=== PATIENT | male | born 1940 | race Caucasian/White ===

== ENCOUNTER 2017-05-29 15:47 | Emergency (ER) | payer MEDICARE, OTHER ==
[2017-05-29 17:25] LABS: Urine Blood TRACE (NEG); Urine Glucose NEGATIVE (NEG); Urine Protein TRACE (NEG); Urine Specific Gravity 1.025 (1.005-1.030); Urine pH 5.5 (5.0-7.0)
[2017-05-29 17:33] LABS: Bilirubin Direct 0.1 mg/dL (0-0.2); Bilirubin Total 0.7 mg/dL (0.3-1.2); Potassium 4.3 mEq/L (3.6-5.0); Protein, Total 7.4 g/dL (6.0-8.3)
[2017-05-29 17:34] LABS: CKMB Creatine Kinase MB 1.8 ng/ml (0.3-4.0); Magnesium 1.7 mg/dL (1.8-2.5)
[2017-05-29 17:35] LABS: Absolute Lymphocytes (CBC) 2.6 K/uL (0.7-4.9); Basophils % 1.4 % (0-1.3); Eosinophils % 1.2 % (0-4.4); Hematocrit 39.8 % (39.6-49.0); Lymphocytes % 18.6 % (15.3-44.8); MCH 36.4 pg (27.0-35.0); MCV 99.8 fL (80-100); MPV 8.7 fL (7.6-11.3); Monocytes % 7.1 % (3.3-12.3); RBC Red Blood Cell Count 3.99 M/uL (4.33-5.43)
--- NOTE | 2017-05-29 17:37 | RAD REPORT ---
EXAM DESCRIPTION: RAD - Chest Single View - 05/29/2017 5:11 pm CLINICAL HISTORY: Chest pain COMPARISON: None. TECHNIQUE: AP portable chest image was obtained 1638 hours . FINDINGS: No mass, consolidation or significant failure. Interstitial markings are diffusely promine nt. This is probably underlying fibrotic lung disease. As a baseline study, superimposed interstitial edema or infiltrate cannot be excluded. Trachea is midline. Heart and vasculature are normal. No veronica surable pleural effusion and no pneumothorax. No gross bony abnormality seen. No acute aortic finding s suspected. IMPRESSION: No mass, consolidation or failure. Prominent interstitial markings could indicate fibrosis, interstitial edema, interstitial infiltrate or a combination.
--- NOTE | 2017-05-29 18:41 | ER ---
Nurse's Notes [facility] Name: Pao Richards Age: 77 yrs Sex: Male : 1940 Arrival Date: 05/29/2017 Time: 15:54 Bed 13 Private MD: Diagnosis: Abnormal electrocardiogram [ECG] [EKG];Essential (primary) hypertension Presentation: 05/29 16:03 Presenting complaint: Patient states: "I was just seen by Dr. Govea at the [facility] and they aj1 told me that something was wrong with my EKG and to come to the ER right away. I've been having dizzy spells for the past few weeks" Patient denies CP, SOB, N/V, palpitations, syncope. Transition of care: patient was not received from another setting of care. Onset of symptoms was May 29, 2017. Care prior to arrival: None. 16:03 Method Of Arrival: Ambulatory aj1 16:03 Acuity: ALEXYS 3 aj1 Triage Assessment: 16:09 General: Appears in no apparent distress. comfortable, Behavior is calm, cooperative, aj1 appropriate for age. Pain: Denies pain. Historical: - Allergies: 16:09 No Known Allergies; aj1 - Home Meds: 16:09 "something for my cholesterol" [Active]; aj1 - PMHx: 16:09 "my good cholesterol is too low"; aj1 - PSHx: 16:09 None; aj1 - Immunization history:: Flu vaccine is up to date. - Social history:: Smoking status: Patient uses tobacco products, smokes one pack cigarettes per day. - Family history:: not pertinent. - Hospitalizations: : No recent hospitalization is reported. - History obtained from: EKG from [facility]. Screenin:10 Abuse screen: Denies threats or abuse. Denies injuries from another. Nutritional aj1 screening: No deficits noted. Tuberculosis screening: No symptoms or risk factors identified. 19:59 Fall Risk None identified. aj1 Assessment: 16:10 General: Appears in no apparent distress. comfortable, Behavior is calm, cooperative, aj1 appropriate for age. Pain: Denies pain. Neuro: Level of Consciousness is awake, alert, obeys commands, Oriented to person, place, time, situation, Social Sciences Chair are equal bilaterally Moves all extremities. Full function Gait is steady, Speech is normal, Facial symmetry appears normal, Reports dizziness. Cardiovascular: Denies nausea, palpitations, shortness of breath, syncope, vomiting, Heart tones S1 S2 present Patient's skin is warm and dry. Rhythm is regular Chest pain is denied. Respiratory: Airway is patent Respiratory effort is even, unlabored, Respiratory pattern is regular, symmetrical. GI: No signs and/or symptoms were reported involving the gastrointestinal system. : No signs and/or symptoms were reported regarding the genitourinary system. EENT: No signs and/or symptoms were reported regarding the EENT system. Derm: No signs and/or symptoms reported regarding the dermatologic system. Skin is pink, warm \\T\\ dry. normal. Musculoskeletal: No signs and/or symptoms reported regarding the musculoskeletal system. Circulation, motion, and sensation intact. 17:09 Reassessment: Patient appears in no apparent distress at this time. No changes from aj1 previously documented assessment. Patient and/or family updated on plan of care and expected duration. Pain level reassessed. Patient is alert, oriented x 3, equal unlabored respirations, skin warm/dry/pink. 18:10 Reassessment: Patient and/or family updated on plan of care and expected duration. Pain aj1 level reassessed. General: Appears in no apparent distress. comfortable, Behavior is calm, cooperative, appropriate for age. Pain: Denies pain. Neuro: Level of Consciousness is awake, alert, obeys commands, Oriented to person, place, time, situation, Speech is normal, Facial symmetry appears normal. Cardiovascular: Patient's skin is warm and dry. Rhythm is regular. Respiratory: Airway is patent Respiratory effort is even, unlabored, Respiratory pattern is regular, symmetrical. GI: No signs and/or symptoms were reported involving the gastrointestinal system. : No signs and/or symptoms were reported regarding the genitourinary system. EENT: No signs and/or symptoms were reported regarding the EENT system. Derm: No signs and/or symptoms reported regarding the dermatologic system. Skin is pink, warm \\T\\ dry. normal. Musculoskeletal: No signs and/or symptoms reported regarding the musculoskeletal system. Circulation, motion, and sensation intact. 18:45 Reassessment: Patient diet tray ordered by Ngoc Todd NP. Order received to not discharge aj1 patient until he has eaten. 19:10 Reassessment: Patient appears in no apparent distress at this time. No changes from aj1 previously documented assessment. Patient and/or family updated on plan of care and expected duration. Pain level reassessed. Patient is alert, oriented x 3, equal unlabored respirations, skin warm/dry/pink. 19:15 Reassessment: Patient given dietary tray. aj1 19:50 Reassessment: Patient states that he is ready for discharge. aj1 Vital Signs: 16:09 BP 136 / 78; Pulse 77; Resp 19; Pulse Ox 99% on R/A; Weight 97.98 kg; Height 5 ft. 9 aj1 in. (175.26 cm); Pain 0/10; 17:00 BP 132 / 70; Pulse 68; Resp 18; Pulse Ox 99% ; aj1 17:51 BP 147 / 75; Pulse 70; Resp 16; Pulse Ox 99% on R/A; mh5 18:50 BP 160 / 75; Pulse 60; Resp 18; Pulse Ox 99% ; aj1 19:57 BP 138 / 62; Pulse 72; Resp 18; Pulse Ox 99% ; aj1 16:09 Body Mass Index 31.90 (97.98 kg, 175.26 cm) aj1 ED Course: 15:54 Patient arrived in ED. mr 16:03 Ebonie Cotton, RN is Primary Nurse. aj1 16:05 Triage completed. aj1 16:09 Arm band placed on. aj1 16:10 Patient has correct armband on for positive identification. Bed in low position. Call aj1 light in reach. Side rails up X 1. 16:10 asw specialist on. Pulse ox on. NIBP on. aj1 16:10 No provider procedures requiring assistance completed. aj1 16:17 EKG done, by emissions testing and repair technician. reviewed by Felix Sunshine MD. tc 16:33 Elise Todd FNP is PHCP. kav 16:33 Felix Sunshine MD is Attending Physician. kav 16:38 Initial lab(s) drawn, by nj, sent to lab. Inserted saline lock: 22 gauge in right mh5 antecubital area, using aseptic technique. Blood collected. 16:39 Basic Metabolic Panel Sent. 5 16:39 BNP Sent. 5 16:39 CBC with Diff Sent. 5 16:39 Ckmb Sent. 5 16:39 CPK Sent. 5 16:39 LFT's Sent. [facility] 16:39 Magnesium Sent. [facility] 16:40 PT-INR Sent. [facility] 16:42 X-ray completed. Portable x-ray completed in exam room. Patient tolerated procedure kc2 well. 16:48 Ptt, Activated Sent. [facility] 16:48 Troponin (emerg Dept Use Only) Sent. [facility] 17:08 Urine Dipstick--Ancillary (enter results) Sent. [facility] 17:08 Urine collected: clean catch specimen, cloudy. [facility] 18:39 David Pandey MD is Referral Physician. [facility] 18:47 Placed in gown. Bed in low position. Call light in reach. Side rails up X 1. Diet: 5 Patient given snack. 19:58 IV discontinued, intact, bleeding controlled, No redness/swelling at site. Pressure aj1 dressing applied. Administered Medications: No medications were administered Outcome: 18:40 Discharge ordered by . [facility] 19:58 Discharged to home ambulatory. aj1 19:58 Condition: good 19:58 Discharge instructions given to patient, Instructed on discharge instructions, follow up and referral plans. medication usage, Demonstrated understanding of instructions, follow-up care, medications, Prescriptions given X 1. 19:59 Patient left the ED. aj1 Signatures: Ebonie Cotton, RN RN aj1 Elise Todd, AUDIOVISUAL LIBRARIAN AUDIOVISUAL LIBRARIAN Hamida Bernard Jas, Samra, relief driller EKG Kyra Adamson kc2 Hamida Rodriguez [facility]
--- NOTE | 2017-05-29 18:41 | EDPHYS ---
Physician Documentation [facility] Name: Pao Richards Age: 77 yrs Sex: Male : 1940 Arrival Date: 05/29/2017 Time: 15:54 Bed 13 Private MD: ED Physician Felix Sunshine HPI: 05/29 16:32 This 77 yrs old Male presents to ER via Ambulatory with complaints of kav Abnormal Lab Results. 18:21 Onset: The symptoms/episode began/occurred acutely, this morning. Associated signs and kav symptoms: Pertinent positives: The patient does not have any pertinent positive signs or symptoms associated with pediatric illness. Pertinent negatives:. Modifying factors: The patient symptoms are alleviated by nothing, the patient symptoms are aggravated by nothing. The patient has not experienced similar symptoms in the past. The patient has been recently seen by a physician: [facility]. patient reports that his [facility] physician sent him over to the ER for "...abnormal ekg". EKG sent from [facility] with NSR \\T\\ 70 bpm, left anterior fasicular block, LVH. Denies chest pain, sob, swelling, abdominal pain. 18:25 [facility] Severity of symptoms: At their worst the symptoms were very kav mild just prior to arrival. Historical: - Allergies: 16:09 No Known Allergies; aj1 - Home Meds: 16:09 "something for my cholesterol" [Active]; aj1 - PMHx: 16:09 "my good cholesterol is too low"; aj1 - PSHx: 16:09 None; aj1 - Immunization history:: Flu vaccine is up to date. - Social history:: Smoking status: Patient uses tobacco products, smokes one pack cigarettes per day. - Family history:: not pertinent. - Hospitalizations: : No recent hospitalization is reported. - History obtained from: EKG from [facility]. ROS: 18:26 Constitutional: Negative for fever, chills, and weight loss, Eyes: Negative for injury, kav pain, redness, and discharge, ENT: Negative for injury, pain, and discharge, Neck: Negative for injury, pain, and swelling, Cardiovascular: Negative for chest pain, palpitations, and edema, Respiratory: Negative for shortness of breath, cough, wheezing, and pleuritic chest pain, Abdomen/GI: Negative for abdominal pain, nausea, vomiting, diarrhea, and constipation, Back: Negative for injury and pain, : Negative for injury, bleeding, discharge, and swelling, MS/Extremity: Negative for injury and deformity, Skin: Negative for injury, rash, and discoloration, Neuro: Negative for headache, weakness, numbness, tingling, and seizure, Psych: Negative for depression, anxiety, suicide ideation, homicidal ideation, and hallucinations, Allergy/Immunology: Negative for hives, rash, and allergies, Endocrine: Negative for neck swelling, polydipsia, polyuria, polyphagia, and marked weight changes, Hematologic/Lymphatic: Negative for swollen nodes, abnormal bleeding, and unusual bruising. Exam: 18:26 Constitutional: This is a well developed, well nourished patient who is awake, alert, kav and in no acute distress. Head/Face: Normocephalic, atraumatic. Eyes: Pupils equal round and reactive to light, extra-ocular motions intact. Lids and lashes normal. Conjunctiva and sclera are non-icteric and not injected. Cornea within normal limits. Periorbital areas with no swelling, redness, or edema. ENT: Nares patent. No nasal discharge, no septal abnormalities noted. Tympanic membranes are normal and external auditory canals are clear. Oropharynx with no redness, swelling, or masses, exudates, or evidence of obstruction, uvula midline. Mucous membranes moist. Neck: Trachea midline, no thyromegaly or masses palpated, and no cervical lymphadenopathy. Supple, full range of motion without nuchal rigidity, or vertebral point tenderness. No Meningismus. Chest/axilla: Normal chest wall appearance and motion. Nontender with no deformity. No lesions are appreciated. Cardiovascular: Regular rate and rhythm with a normal S1 and S2. No gallops, murmurs, or rubs. Normal PMI, no JVD. No pulse deficits. Respiratory: Lungs have equal breath sounds bilaterally, clear to auscultation and percussion. No rales, rhonchi or wheezes noted. No increased work of breathing, no retractions or nasal flaring. Abdomen/GI: Soft, non-tender, with normal bowel sounds. No distension or tympany. No guarding or rebound. No evidence of tenderness throughout. Back: No spinal tenderness. No costovertebral tenderness. Full range of motion. Skin: Warm, dry with normal turgor. Normal color with no rashes, no lesions, and no evidence of cellulitis. MS/ Extremity: Pulses equal, no cyanosis. Neurovascular intact. Full, normal range of motion. Neuro: Awake and alert, GCS 15, oriented to person, place, time, and situation. Cranial nerves II-XII grossly intact. Motor strength 5/5 in all extremities. Sensory grossly intact. Cerebellar exam normal. Normal gait. Psych: Awake, alert, with orientation to person, place and time. Behavior, mood, and affect are within normal limits. Vital Signs: 16:09 BP 136 / 78; Pulse 77; Resp 19; Pulse Ox 99% on R/A; Weight 97.98 kg; Height 5 ft. 9 [facility]. (175.26 cm); Pain 0/10; 17:00 BP 132 / 70; Pulse 68; Resp 18; Pulse Ox 99% ; [facility] 17:51 BP 147 / 75; Pulse 70; Resp 16; Pulse Ox 99% on R/A; 5 18:50 BP 160 / 75; Pulse 60; Resp 18; Pulse Ox 99% ; aj1 19:57 BP 138 / 62; Pulse 72; Resp 18; Pulse Ox 99% ; [facility] 16:09 Body Mass Index 31.90 (97.98 kg, 175.26 cm) [facility] MDM: 16:33 Patient medically screened. [facility] 18:26 Data reviewed: vital signs, nurses notes, lab test result(s), EKG, radiologic studies. [facility] 05/29 16:15 Order name: Basic Metabolic Panel [facility] 05/29 16:15 Order name: BNP 05/29 16:15 Order name: CBC with Diff 05/29 16:15 Order name: Ckmb [facility] 05/29 16:15 Order name: CPK [facility] 05/29 16:15 Order name: LFT's [facility] 05/29 16:15 Order name: Magnesium [facility] 05/29 16:15 Order name: PT-INR [facility] 05/29 16:15 Order name: Ptt, Activated [facility] 05/29 16:15 Order name: Troponin (emerg Dept Use Only) [facility] 05/29 17:04 Order name: Urine Dipstick--Ancillary (enter results) [place] 05/29 17:04 Order name: Protime (+INR); Complete Time: 18:18 EDMS 05/29 17:04 Order name: PTT, Activated Partial Thromb; Complete Time: 18:18 EDMS 05/29 18:19 Interpretation: Within normal limits. [facility] 05/29 17:08 Order name: Troponin (Emerg Dept Use Only); Complete Time: 18:18 EDMS 05/29 18:19 Interpretation: Within normal limits: TROPED < 0.03. [facility] 05/29 16:15 Order name: XRAY Chest (1 view) 05/29 16:15 Order name: EKG; Complete Time: 16:16 05/29 16:15 Order name: Cardiac monitoring; Complete Time: 16:15 05/29 16:15 Order name: EKG - Nurse/Tech; Complete Time: 16:44 05/29 16:15 Order name: IV Saline Lock; Complete Time: 16:46 05/29 16:15 Order name: Labs collected and sent; Complete Time: 16:46 [facility] 05/29 17:12 Order name: BNP B-Type Natriuretic Peptide; Complete Time: 18:18 EDMS 05/29 18:20 Interpretation: Within normal limits. [facility] 05/29 17:26 Order name: Urine Dipstick-Ancillary; Complete Time: 18:17 EDMS 05/29 18:17 Interpretation: Normal except: UBLD TRACE; UESTR TRACE. [facility] 05/29 17:33 Order name: Basic Metabolic Panel; Complete Time: 18:17 EDMS 05/29 18:17 Interpretation: Normal except: GFR 68. [facility] 05/29 17:33 Order name: Liver (Hepatic) Function; Complete Time: 18:18 EDMS 05/29 18:20 Interpretation: Within normal limits. [facility] 05/29 17:35 Order name: Creatine Phosphokinase; Complete Time: 18:18 EDMS 05/29 18:20 Interpretation: Within normal limits. [facility] 05/29 17:35 Order name: CKMB Creatine Kinase MB; Complete Time: 18:18 EDMS 05/29 18:20 Interpretation: Within normal limits. [facility] 05/29 17:35 Order name: Magnesium; Complete Time: 18:17 EDMS 05/29 18:17 Interpretation: Normal except: MG 1.7. [facility] 05/29 17:37 Order name: RAD; Complete Time: 18:18 EDMS 05/29 18:19 Interpretation: Interstitial edema. kav 05/29 17:46 Order name: CBC with Automated Diff; Complete Time: 18:17 EDDE 05/29 18:17 Interpretation: Normal except: WBC 13.9; RBC 3.99; MCH 36.4; MCHC 36.4; BASO% 1.4; NEUT kav A 10.0. 05/29 18:18 Order name: Diet Regular; Complete Time: 18:19 ms 05/29 16:15 Order name: O2 Per Protocol; Complete Time: 16:15 [facility] 05/29 16:15 Order name: O2 Sat Monitoring; Complete Time: 16:15 aj 05/29 16:15 Order name: Urine Dipstick-Ancillary (obtain specimen); Complete Time: 17:26 aj Administered Medications: No medications were administered Disposition: 05/30 07:15 Co-signature as Attending Physician, Felix Sunshine MD I agree with the assessment and kdr plan of care. Disposition: 05/29/17 18:40 Discharged to Home. Impression: Abnormal electrocardiogram [ECG] [EKG], Essential (primary) hypertension. - Condition is Stable. - Discharge Instructions: Hypertension, [id number], How to Take Your Blood Pressure, [id number], DASH Eating Plan, Managing Your High Blood Pressure. - Prescriptions for Lisinopril 10 mg Oral Tablet - take 1 tablet by ORAL route once daily; 30 tablet. - Medication Reconciliation Form, Thank You Letter, Antibiotic Education, Prescription Opioid Use form. - Follow up: David Pandey MD; When: 1 week; Reason: Recheck today's complaints, Continuance of care, Re-evaluation by your physician. - Problem is new. - Symptoms have improved. Signatures: Dispatcher [employer] Ebonie Griffith RN RN aj1 Felix Sunshine MD MD kdr Vern, Katherine, MANAGER INFORMATION MANAGER INFORMATION kav Corrections: (The following items were deleted from the chart) 05/29 18:18 18:18 Within normal limits. kav kav
--- NOTE | 2017-05-30 07:27 | EKG ---
Test Date: 2017-05-29 Test Time: 16:11:10 Biometrics Head: AMEE MEASUREMENT RESULTS: Intervals: Rate: 61 WV: 164 QRSD: 116 QT: 414 QTc: 416 Jordan: P: 67 WV: 164 QRS: -49 T: 55 INTERPRETIVE STATEMENTS: Sinus rhythm with fusion complexes Left anterior fascicular block Left ventricular hypertrophy with QRS widening Abnormal ECG Compared to ECG 07/23/2006 09:36:23 Fusion complex(es) now present Left anterior fascicular block now present Left-axis deviation no longer present Electronically Signed On 05-30-17 07:26:34 CDT by Christopher Kasper
== END 2017-05-29 19:59 | disposition home or self-care (01) ==
LOC: ER 15:47
DX: I10 Essential (primary) hypertension (principal); F17.210 Nicotine dependence, cigarettes, uncomplicated
CPT/HCPCS: 36415; 71045; 80048; 80076; 81003; 82550; 82553; 83735; 83880; 84484; 85025; 85610; 85730; 93005; 99284

== ENCOUNTER 2019-11-23 07:52 | Day surgery (SDC) | payer OTHER ==
--- NOTE | 2019-11-19 17:01 | RAD REPORT ---
EXAM DESCRIPTION: RAD - Chest Pa And Lat (2 Views) - 11/19/2019 4:07 pm CLINICAL HISTORY: PRE OP, pending colon mass removal COMPARISON: Two view chest April 2019 and May 2017 TECHNIQUE: Frontal and lateral views of the chest were obtained. FINDINGS: The lungs are clear of an acute infiltrate. No large mass lesion. No failure or volume ove rload. Interstitial pattern is not significantly different from comparison imaging. In the lateral lo wer right lung field there is a small 7 mm nodular density superimposed on the posterior right ninth rib. This may be a summation artifact rather than a true nodule. This was not clearly seen on compari son. Small granuloma would be favored. There is a vague area of nodularity in the lower left lung fie ld. Bilateral nipple shadows would be possible. Heart size is normal and central vasculature is within normal limits. No pleural effusion or pneumot horax seen. No acute bony finding noted. No aortic abnormality. IMPRESSION: No failure, infiltrate or acute cardiopulmonary finding. Lower lung field nodular foci are present possibly nipple shadows given the symmetric lower lung fiel d appearance. Granuloma or other benign process possible as well. Long-term significance is doubtful. A repeat chest film in 3 months could be performed to monitor for stability. Alternatively, if there is more acute clinical concern, a repeat PA chest film with nippl e markers could be performed.
[2019-11-19 17:05] LABS: Potassium 6.6 mmol/L (3.5-5.1)
[2019-11-19 18:30] LABS: Absolute Lymphocytes (CBC) 2.8 K/uL (0.7-4.9); Basophils % 0.7 % (0-1.3); Hematocrit 40.7 % (39.6-49.0); Lymphocytes % 24.9 % (15.3-44.8); MPV 9.6 fL (7.6-11.3); RBC Red Blood Cell Count 4.07 M/uL (4.33-5.43)
[2019-11-23] MEDS ORDERED: LIDOCAINE 1% MPF 5 ML VIAL ONE (08:31)
[2019-11-23] MEDS ORDERED: propofoL 200 MG/20 ML VIAL IV ONE (08:31)
[2019-11-23] MEDS ORDERED: FENTANYL CITR 100 MCG/2 ML ONE (08:31)
[2019-11-23] MEDS ORDERED: Ringers Lactate 1,000 ML IV ONE (08:34)
[2019-11-23] MEDS ORDERED: BUPIVACAINE 0.5% PF 10 ML VIAL ONE (08:38)
[2019-11-23] MEDS ORDERED: CEFAZOLIN/SWI 1gm 1 GM/10 ML SYR ONE (08:44)
[2019-11-23] MEDS ORDERED: dexAMETHasone 10 MG/ML VIAL ONE (09:33)
[2019-11-23] MEDS ORDERED: KETOROLAC 30 MG/ML INJ ONE (09:33)
--- NOTE | 2019-11-23 09:37 | P.BOP ---
Preoperative diagnosis: Right buttock inflammed subQ mass 4x3 cm Postoperative diagnosis: same Primary procedure: Excisional biopsy of Right buttock subcutaneous tender mass Estimated blood loss: <10cc Specimen: mass Findings: subQ mass Anesthesia: General Complications: None Transferred to: Recovery Room Condition: Good
[2019-11-23] MEDS ORDERED: ONDANSETRON 4 MG/2 ML VIAL ONE (09:48)
--- NOTE | 2019-11-23 11:43 | DS ---
Diagnosis: Right buttocks inflamed subcutaneous mass. Procedure: Excision of biopsy of right buttock subcutaneous tender mass. Disposition: Home. Activity: As tolerated. No heavy lifting. Plan: Follow up in my office in 1 week. Call for appointment at [phone]. Keep area dry for 48 hour s. Then may shower, then apply triple antibiotics and sterile dressings over the area. BEVERLY/LORRI Voice ID: [id number] Report ID: [id number]
--- NOTE | 2019-11-23 11:43 | OP ---
Date of Procedure: 11/23/2019 Surgeon: Rm Rodriguez MD Preoperative Diagnosis: Right buttock inflamed subcutaneous mass 4 x 3 cm. Postoperative Diagnosis: Right buttock inflamed subcutaneous mass 4 x 3 cm. Procedure: Excisional biopsy of right buttock subcutaneous tender mass with layered closure. Estimated Blood Loss: Less than 10 mL. Specimen: Subcutaneous mass. Anesthesia: General plus local. Complications: None. Indications: This is a case of a 79-year-old patient who comes to us with a right buttock mass infla med with erythema previously. Erythema went down significantly and the inflammation still have a lum p in that area, which is tender. He wants that excised. The benefits, alternatives, and risks of ex cision fully explained, which include, but not limited to infection, bleeding, damage to adjacent str uctures, anesthesia complication, recurrence, [place], even . He also understands this may not relie ve any symptoms. He might need more than one surgical intervention. He understood, signed a consent . Description Of Procedure: The patient brought to the operating room, placed in supine position previ ously. This area was marked by me in the patient in the holding room, so we placed the patient in li thotomy position. Right buttock was prepped and draped in a sterile fashion. Local anesthesia was a pplied after time-out was called. Then, after that, we proceeded to remove the area in a wedge fashi on. Incision was carried down to deep subcutaneous tissue. Mass was excised. Area was irrigated. We did not see any connection to any other areas and we cannot see any other masses. The area was ir rigated. We proceeded to close this in deep layers with 3-0 chromic and then the skin with 3-0 nylon . Sponge count, instrument counts correct. The patient tolerated the procedure well. The patient i s sent to Recovery in stable condition. BEVERLY/LORRI Voice ID: [id number] Report ID: [id number]
[2019-11-23 12:12] VITALS: TEMP 97.8; O2SAT 100
[2019-11-23 12:16] VITALS: BP 141/56
== END 2019-11-23 11:05 | disposition home or self-care (01) ==
LOC: OR 07:52
PROVIDERS: ATTEND Surgery
PROC: 0JB90ZZ Excision of Buttock Subcutaneous Tissue and Fascia, Open Approach (ICD-10-PCS; 2019-11-23)
PROC: 0JQ90ZZ Repair Buttock Subcutaneous Tissue and Fascia, Open Approach (ICD-10-PCS; principal; 2019-11-23 09:30)
DX: R22.9 Localized swelling, mass and lump, unspecified (principal); L83 Acanthosis nigricans; Z20.828 Contact with and (suspected) exposure to other viral communicable diseases
CPT/HCPCS: 93005; 85025; 80048; 36415 ×2; 84132; 88305; 71046; 11402; 12031; U0002; J2704; J3010; J1100; J0690; J7120; J2405

== ENCOUNTER 2022-08-07 13:41 | Emergency (ER) | payer MEDICARE ==
--- OUTSIDE RECORDS SUMMARY | 2022-08-07 13:53 | XMS REPORT | Continuity of Care Document ---
:1940 Author Organization [facility] t Address [address] [facility] [address] [place] [address] Care Team Providers Name Role Phone Gavin Florencio Allen Attending Clinician Unavailable Payers Payer Name Policy Type Policy Number Effective Date Expiration Date [facility] [id number] 2022 (MEDICARE 00:00:00 REPLACEMENT HMO) Problems This patient has no known problems. Allergies, Adverse Reactions, Alerts This patient has no known allergies or adverse reactions. Medications This patient has no known medications. Procedures This patient has no known procedures. Encounters Start End Encounter Admission Attending Care Care Encounter Source Date/Time Date/Time Type Type Clinicians Facility Department ID 2021-09-28 Outpatient Alonso, [facility] [id number] Common 14:10:03 Florencio [facility] 2021-05-03 [facility] [id number] Common 14:43:02 Florencio [facility] 2021-04-05 Outpatient Alonso, [facility] [id number] Common 14:21:16 Florencio [id number] [facility] 2022-07-14 2022-07-14 [facility] [id number] 00:00:00 [id number] 2021-12-27 2021-12-27 [facility] [id number] 00:00:00 [id number] [facility] 2021-10-04 2021-10-04 ambulatory [facility] [id number] Common 00:00:00 00:00:00 [facility] 2021-09-22 2021-09-22 ambulatory [facility] [id number] Common 00:00:00 00:00:00 [facility] 2021-05-03 2021-05-03 ambulatory [facility] [id number] Common 00:00:00 00:00:00 [facility] 2021-04-18 2021-04-18 ambulatory [facility] [id number] Common 00:00:00 00:00:00 [facility] 2021-02-13 2021-02-13 ambulatory [facility] [id number] Common 00:00:00 00:00:00 [facility] Results This patient has no known results.
--- NOTE | 2022-08-07 14:51 | RAD REPORT ---
EXAM DESCRIPTION: CT - Head Brain Wo Cont - 08/07/2022 2:40 pm CLINICAL HISTORY: Dizziness COMPARISON: None TECHNIQUE: Computed axial tomography of the head was obtained. IV contrast was not requested. All CT scans are performed using dose optimization technique as appropriate and may include automated exposure control or mA/KV adjustment according to patient size. FINDINGS: An intracranial bleed is not seen The ventricles are normal in caliber No extra-axial fluid collection is noted. Mild low-density areas within periventricular, deep and subcortical white matter likely represent isc hemic changes secondary to small vessel disease. Fluid within the sinuses/ mastoids is not seen. IMPRESSION: No acute intracranial abnormality is seen If patient's symptoms persist MRI of the brain would be recommended
[2022-08-07 15:08] LABS: Potassium 4.3 mEq/L (3.5-5.1); Troponin High Sensitivity 7.6 pg/mL (<58.9)
--- NOTE | 2022-08-07 15:19 | RAD REPORT ---
EXAM DESCRIPTION: USCarotid Artery Bilateral08/07/2022 2:56 pm CLINICAL HISTORY: Dizziness COMPARISON: None FINDINGS: The velocity of the right internal carotid artery equals 84 cm/sec. The right ICA/CCA rati o 1.2 The velocity of the left internal carotid artery equals 87 cm/sec. The left ICA/CCA ratio 1.2 Left internal carotid artery is tortuous Mild plaque is present within the carotid arteries. The vertebral arteries demonstrate antegrade flow IMPRESSION: Mild plaque within the carotid arteries without evidence of a hemodynamically significan t stenosis NASCET criteria used. Mild 0-49% stenosis Moderate 50-69% stenosis Severe 70-99% stenosis
--- NOTE | 2022-08-07 15:21 | RAD REPORT ---
EXAM DESCRIPTION: Alonzo Single View08/07/2022 3:05 pm CLINICAL HISTORY: Dizziness COMPARISON: 2019 FINDINGS: The lungs appear clear of acute infiltrate. The heart is normal size IMPRESSION: No acute abnormalities displayed
[2022-08-07] MEDS ORDERED: NA CHLORIDE 0.9% 1,000 ML ONE (15:54)
[2022-08-07 15:57] LABS: Absolute Lymphocytes (CBC) 2.3 K/uL (0.7-4.9); Hematocrit 37.8 % (39.6-49.0); Lymphocytes % 20.2 % (15.3-44.8); MCV 94.1 fL (80-100); MPV 9.1 fL (7.6-11.3); RBC Red Blood Cell Count 4.02 M/uL (4.33-5.43)
--- NOTE | 2022-08-07 16:07 | EDPHYS ---
Physician Documentation [facility] Name: Pao Richards Age: 82 yrs Sex: Male : 1940 Arrival Date: 08/07/2022 Time: 13:41 Bed 10 Private MD: Tristan Styles ED Physician Billy Vera HPI: 08/07 15:36 This 82 yrs old Male presents to ER via Ambulatory with complaints of Dizziness. rn 15:36 The patient presents with generalized weakness, lightheadedness. Onset: The rn symptoms/episode began/occurred 6 month(s) ago. Context: occurred at an unknown location, occurred while the patient was at rest. Modifying factors: The symptoms are alleviated by lying down, the symptoms are aggravated by standing up, changing position. Associated signs and symptoms: Pertinent negatives: abdominal pain, ataxia, chest pain, diaphoresis, focal weakness, head injury, headache, palpitations, seizure, shortness of breath, syncope, vomiting. Severity of symptoms: At their worst the symptoms were moderate in the emergency department the symptoms have improved. The patient has experienced similar episodes in the past. The patient has not recently seen a physician. Pt and family report 6 months of intermittent dizziness, worse when standing, no vomiting, no focal weakness, no headache. Reports his doctor ordered an outpt carotid doppler but dizziness got worse over last couple of days and didn't want to wait for study. NO chest pain/sob. Family states rarely drinks water, doesn't eat right, and they are concerned of signs of dementia. . Historical: - Allergies: 14:21 No Known Allergies; iw - Home Meds: 14:21 None [Active]; iw - PMHx: 14:21 "my good cholesterol is too low"; iw - Immunization history:: Adult Immunizations up to date. - Family history:: not pertinent. - Social history:: Smoking status: unknown. - Hospitalizations: : No recent hospitalization is reported. ROS: 15:41 Constitutional: Negative for fever, chills, and weight loss, Eyes: Negative for injury, rn pain, redness, and discharge, Neck: Negative for injury, pain, and swelling, Cardiovascular: Negative for chest pain, palpitations, and edema, Respiratory: Negative for shortness of breath, cough, wheezing, and pleuritic chest pain, Abdomen/GI: Negative for abdominal pain, nausea, vomiting, diarrhea, and constipation, Back: Negative for injury and pain, : Negative for injury, bleeding, discharge, and swelling, MS/Extremity: Negative for injury and deformity, Skin: Negative for injury, rash, and discoloration, Neuro: Negative for headache, numbness, tingling, and seizure. Exam: 15:41 Constitutional: This is a well developed, well nourished patient who is awake, alert, rn and in no acute distress. Head/Face: Normocephalic, atraumatic. Neck: No Meningismus. Cardiovascular: Bradycardic, regular. No pulse deficits. Respiratory: No increased work of breathing, no retractions or nasal flaring. Abdomen/GI: Soft, non-tender Skin: Warm, dry MS/ Extremity: Pulses equal, no cyanosis. Neuro: Awake and alert, GCS 15, oriented to person, place, time, and situation. Cranial nerves II-XII grossly intact. Motor strength 5/5 in all extremities. Sensory grossly intact. Cerebellar exam normal. Normal gait. Vital Signs: 14:21 BP 118 / 77; Pulse 50; Resp 16; Temp 98.2; Pulse Ox 100% on R/A; Weight 72.57 kg; iw Height 5 ft. 9 in. ; 14:21 Body Mass Index 23.63 (72.57 kg, 175.26 cm) iw MDM: 14:20 Patient medically screened. rn 16:04 Differential diagnosis: cardiac arrhythmia, generalized weakness, hypovolemia, rn idiopathic dizziness, near-syncope, vertigo. Data reviewed: vital signs, nurses notes, lab test result(s), EKG, radiologic studies, CT scan, doppler, and as a result, I will discharge patient. Counseling: I had a detailed discussion with the patient and/or guardian regarding: the historical points, exam findings, and any diagnostic results supporting the discharge/admit diagnosis, lab results, radiology results, the need for outpatient follow up, to return to the emergency department if symptoms worsen or persist or if there are any questions or concerns that arise at home. Response to treatment: the patient's symptoms have markedly improved after treatment, and as a result, I will discharge patient. Special discussion: I discussed with the patient/guardian in detail that at this point there is no indication for admission to the hospital. It is understood, however, that if the symptoms persist or worsen the patient needs to return immediately for re-evaluation. Based on the history and exam findings, there is no indication for further emergent testing or inpatient evaluation. I discussed with the patient/guardian the need to see the adult caregiver for further evaluation of the symptoms. ED course: Pt without acute findings in CT head or carotid doppler. Neg trop. ECG shows sinus bradycardia, spoke with patient and family, has had before, transferred to [place] at that time, kept on monitor, and no pacemaker recommended. Patient with bradycardia here and denies current dizzy spells, no possibly unrelated. Stressed importance of cardiology and pcp f/u to patient and family and given strict return precautions. . 08/07 14:27 Order name: Basic Metabolic Panel; Complete Time: 15:19 rn 08/07 14:27 Order name: CBC with Diff; Complete Time: 16:03 rn 08/07 14:27 Order name: NT PRO-BNP; Complete Time: 15: rn 08/07 14:27 Order name: Troponin HS; Complete Time: 15: rn 08/07 14:26 Order name: CT Head Brain wo Cont; Complete Time: 15: rn 08/07 14:26 Order name: Carotid Artery Bilateral US; Complete Time: 15: rn 08/07 14:27 Order name: XRAY Chest (1 view); Complete Time: 15:30 rn 08/07 14:27 Order name: EKG; Complete Time: 14:27 rn 08/07 14:27 Order name: Cardiac monitoring; Complete Time: 15:42 rn 08/07 14:27 Order name: EKG - Nurse/Tech; Complete Time: 15:56 rn 08/07 14:27 Order name: IV Saline Lock; Complete Time: 14:37 rn 08/07 14:27 Order name: Labs collected and sent; Complete Time: 15:41 rn 08/07 14:27 Order name: O2 Per Protocol; Complete Time: 15:41 rn 08/07 14:27 Order name: O2 Sat Monitoring; Complete Time: 15:41 rn Administered Medications: 15:56 Drug: NS 0.9% IV 1000 ml Route: IV; Rate: 1000 ml; Site: right antecubital; bp 17:27 Follow up: IV Status: Completed infusion; IV Intake: 1000ml kb3 Disposition Summary: 08/07/22 16:07 Discharge Ordered Location: Home rn Problem: new rn Symptoms: have improved rn Condition: Stable rn Diagnosis - Dizziness and giddiness rn - Dehydration rn - Bradycardia, unspecified rn Followup: rn - With: Tristan Styles DO - When: As needed - Reason: Recheck today's complaints, Re-evaluation by your physician Discharge Instructions: - Discharge Summary Sheet rn - Bradycardia, Adult rn - Dehydration, Adult rn - Dizziness rn Forms: - Medication Reconciliation Form rn - Thank You Letter rn - Antibiotic pattern developer - Prescription Opioid Use rn Signatures: Dispatcher [employer] EDMelinda Miranda RN RN Billy Abreu MD MD rn Peltier, Brian RN RN Nighat Perez, RN RN kb3
--- NOTE | 2022-08-07 16:07 | ER ---
Nurse's Notes [facility] Name: Pao Richards Age: 82 yrs Sex: Male : 1940 Arrival Date: 08/07/2022 Time: 13:41 Bed 10 Private MD: Tristan Styles Diagnosis: Dizziness and giddiness;Dehydration;Bradycardia, unspecified Presentation: 08/07 14:19 Chief complaint: Patient's son or daughter states: they're supposed to be doing a iw carotid US, he's been dizzy for 6 months, forgets to eat, feels like everything is spinning , sees Dr. Styles , today he almost fell down when he got out of bed and he said he can;t wait. Coronavirus screen: At this time, the client does not indicate any symptoms associated with coronavirus-19. Ebola Screen: Patient negative for fever greater than or equal to 101.5 degrees Fahrenheit, and additional compatible Ebola Virus Disease symptoms Patient denies exposure to infectious person. Patient denies travel to an Ebola-affected area in the 21 days before illness onset. No symptoms or risks identified at this time. 14:19 Method Of Arrival: Ambulatory iw 14:19 Acuity: ALEXYS 3 iw 14:21 Initial Sepsis Screen: Does the patient meet any 2 criteria? No. Patient's initial iw sepsis screen is negative. Does the patient have a suspected source of infection? No. Patient's initial sepsis screen is negative. Risk Assessment: Do you want to hurt yourself or someone else? Patient reports no desire to harm self or others. Onset of symptoms. Historical: - Allergies: 14:21 No Known Allergies; iw - Home Meds: 14:21 None [Active]; iw - PMHx: 14:21 "my good cholesterol is too low"; iw - Immunization history:: Adult Immunizations up to date. - Family history:: not pertinent. - Social history:: Smoking status: unknown. - Hospitalizations: : No recent hospitalization is reported. Screenin:26 [facility] ED Fall Risk Assessment (Adult) History of falling in the last 3 months, kb3 including since admission No falls in past 3 months (0 pts). Abuse screen: Denies threats or abuse. Denies injuries from another. Nutritional screening: No deficits noted. Tuberculosis screening: No symptoms or risk factors identified. Assessment: 16:23 Reassessment: DC ON HOLD FOR IVF. bp 17:26 Reassessment: DC HOME AMBULATORY WITH FAMILY. kb3 Vital Signs: 14:21 BP 118 / 77; Pulse 50; Resp 16; Temp 98.2; Pulse Ox 100% on R/A; Weight 72.57 kg; iw Height 5 ft. 9 in. ; 14:21 Body Mass Index 23.63 (72.57 kg, 175.26 cm) iw ED Course: 13:43 Patient arrived in ED. am2 13:43 Tristan Styles DO is Private Physician. am2 14:20 Blily Vera MD is Attending Physician. rn 14:20 Triage completed. iw 14:22 Arm band placed on. iw 14:36 Inserted saline lock: 22 gauge in right antecubital area, using aseptic technique. iw 14:42 CT Head Brain wo Cont In Process Unspecified. EDMS 14:47 Carotid Artery Bilateral US In Process Unspecified. EDMS 15:05 XRAY Chest (1 view) In Process Unspecified. EDMS 15:41 Mark Albright, RN is Primary Nurse. bp 16:06 Tristan Styles DO is Referral Physician. rn 17:26 Patient has correct armband on for positive identification. Bed in low position. Call kb3 light in reach. Adult w/ patient. 17:26 No provider procedures requiring assistance completed. IV discontinued, intact, kb3 bleeding controlled, No redness/swelling at site. Pressure dressing applied. Administered Medications: 15:56 Drug: NS 0.9% IV 1000 ml Route: IV; Rate: 1000 ml; Site: right antecubital; bp 17:27 Follow up: IV Status: Completed infusion; IV Intake: 1000ml kb3 Medication: 17:26 VIS not applicable for this client. kb3 Intake: 17:27 IV: 1000ml; Total: 1000ml. kb3 Outcome: 16:07 Discharge ordered by . rn 17:26 Discharged to home ambulatory, with family. kb3 17:26 Condition: stable 17:26 Discharge instructions given to patient, family, Instructed on discharge instructions, follow up and referral plans. Demonstrated understanding of instructions, follow-up care. 17:27 Patient left the ED. kb3 Signatures: Dispatcher [employer] Melinda Crews RN RN Billy Abreu MD MD rn Moreno, Gloria bullard2 Mark Albright, RN RN bp Nighat Macias RN RN kb3
[2022-08-07 17:57] VITALS: BP 118/77; TEMP 98.2; O2SAT 100
--- NOTE | 2022-08-09 12:12 | EKG ---
Test Date: 2022-08-07 Test Time: 15:52:02 Radiation Oncologist: BP MEASUREMENT RESULTS: Intervals: Rate: 43 PA: 166 QRSD: 112 QT: 474 QTc: 400 [place]: P: 68 PA: 166 QRS: -48 T: 69 INTERPRETIVE STATEMENTS: Marked sinus bradycardia Incomplete right bundle branch block Left anterior fascicular block Junctional ST depression, probably normal Abnormal ECG Compared to ECG 11/19/2019 15:38:53 Incomplete right bundle-branch block now present ST (T wave) deviation now present Electronically Signed On 08-09-22 12:06:27 CDT by David Pandey
== END 2022-08-07 17:27 | disposition home or self-care (01) ==
LOC: ER 13:41
DX: E86.0 Dehydration (principal); R00.1 Bradycardia, unspecified
CPT/HCPCS: 96361; 93005; 85025; 80048; 36415; 84484; 83880; 70450; 71045; 93880; 96360; 99284; J7030

== ENCOUNTER 2023-04-03 00:20 | Inpatient (IN) | payer MEDICARE ==
--- OUTSIDE RECORDS SUMMARY | 2023-04-03 00:22 | XMS REPORT | Continuity of Care Document ---
Author Name Unknown Address [address] [facility] [address] [place] [address] [facility] Address [address] [facility] [address] [place] [address] Care Team Providers Care Junior Account Manager Name Role Phone Florencio Alonso Attending Clinician Unavailable Payers Payer Name Policy Type Policy Number Effective Date Expirati on Date Source [facility] [employer] (MEDICARE REPLACEMENT HMO) [id number] 2022 00:00:00 Problems Condition Name Condition Details Condition Category Status Onset Date Resolution Date Last Treatment Date Treating Clinician Comments Source [id number] Bilateral hearing loss, unspecifie d hearing loss type Problem [facility] [id number] Tobacco use disorder, continuous Problem [facility] Tobacco user Cigarette nicotine dependence without complicati on Problem [facility] Social History Social Habit Start Date Stop Date Quantity Comments Source History of Tobacco Use Current Smoker [facility] Sex Assigned At [facility] Smoking Status Start Date Stop Date Source Current Smoker 2021-09-21 00:00:00 [facility] Medications Ordered Medication Name Filled Medication Name Start Date Stop Date Current Medication? Ordering Clinician Indication Dosage Frequency Signature (SIG) Comments Components Source Meclizine HCl 25 MG Meclizine HCl 25 MG No 1{table t_as_ne eded} QD Meclizine HCl 25 MG Encounters Start Date/Time End Date/Time Encounter Type Admission Type Attending Clinicians Care Facility Care Department Encounter ID Source 2021-09-28 14:10:03 Outpatient Alonso, Florencio [facility] [id number] [facility] 2021-05-03 14:43:02 Outpatient Alonso, Florencio [facility] [id number] [facility] 2021-04-05 14:21:16 Outpatient Alonso, Florencio [facility] [id number] [facility] 2022-07-14 00:00:00 2022-07-14 00:00:00 Outpatient DMG DMG [id number] [facility] 2021-12-27 00:00:00 2021-12-27 00:00:00 Outpatient DMG DMG [id number] [facility] 2021-10-04 00:00:00 2021-10-04 00:00:00 ambulatory [facility] [id number] [facility] 2021-09-22 00:00:00 2021-09-22 00:00:00 (TEL) [facility] [id number] [facility] 2021-09-22 00:00:00 2021-09-22 00:00:00 ambulatory [facility] [id number] [facility] 2021-05-03 00:00:00 2021-05-03 00:00:00 ambulatory [facility] [id number] [facility] 2021-04-18 00:00:00 2021-04-18 00:00:00 ambulatory [facility] [id number] [facility] 2021-02-13 00:00:00 2021-02-13 00:00:00 ambulatory [facility] [id number] [facility]
[2023-04-03] MEDS ORDERED: MORPHINE 4 MG/ML SYR ONE ×2 (00:45→03:57)
[2023-04-03] MEDS ORDERED: ONDANSETRON 4 MG/2 ML VIAL ONE ×2 (00:45→03:57)
[2023-04-03] MEDS ORDERED: NA CHLORIDE 0.9% 1,000 ML ONE (00:46)
[2023-04-03 03:48] LABS: Albumin 3.4 g/dL (3.4-5.0); Bilirubin Direct 0.4 mg/dL (0-0.2); Bilirubin Indirect, Calculated 0.5 mg/dL (0.2-0.8); Bilirubin Total 0.9 mg/dL (0.2-1.0); Magnesium 1.9 mg/dL (1.6-2.4); Potassium 3.8 mEq/L (3.5-5.1); Protein, Total 7.2 g/dL (6.4-8.2); Troponin High Sensitivity 16.2 pg/mL (<58.9)
[2023-04-03 03:49] LABS: Absolute Lymphocytes (CBC) 1.5 K/uL (0.7-4.9); Hematocrit 33.5 % (39.6-49.0); Lymphocytes % 8.2 % (15.3-44.8); MCV 107.7 fL (80-100); MPV 8.2 fL (7.6-11.3); Platelets 385 thou/uL (152-406); Protime INR 1.03; RBC Red Blood Cell Count 3.11 M/uL (4.33-5.43)
[2023-04-03] MEDS ORDERED: PIPERACIL/TAZO 3.375 GM VIAL IV ONE (04:03)
[2023-04-03] MEDS ORDERED: NA CHLORIDE 0.9% 250 ML ONE (04:03)
[2023-04-03] MEDS ORDERED: METOCLOPRAMIDE 10 MG/2mL INJ ONE (04:07)
[2023-04-03 04:27] LABS: Blood Morphology Comment NOTED (NOT SEEN); Macrocytosis 1+; Platelet Estimate ADEQ; White Blood Cell Scan OK (OK)
--- NOTE | 2023-04-03 04:36 | EDPHYS ---
Physician Documentation [facility] Name: Pao Richards Age: 82 yrs Sex: Male : 1940 Arrival Date: 04/03/2023 Time: 00:20 Bed 16 Private MD: ED Physician Milind Lainez HPI: 04/03 00:37 This 82 yrs old Male presents to ER via Unassigned with complaints of diffuse sp4 abdominal pain . 04:00 82-year-old male presents with acute diffuse abdominal pain associated with nausea. . sp4 04:08 Patient he states there is diffuse moderate to severe abdominal pain associated with sp4 nausea without vomiting without bloody stools. . Historical: - Allergies: 00:38 No Known Allergies; jj7 - PSHx: 00:38 None; jj7 - Immunization history:: Client reports receiving the 2nd dose of the Covid vaccine, Flu vaccine is up to date. - Social history:: Smoking status: Patient reports the use of cigarette tobacco products, smokes one pack cigarettes per day. Patient/guardian denies using alcohol, street drugs. - Family history:: not pertinent. ROS: 04:08 Constitutional: Negative for fever, chills, and weight loss, positive diffuse abdominal sp4 pain and nausea Eyes: Negative for injury, pain, redness, and discharge, ENT: Negative for injury, pain, and discharge, Neck: Negative for injury, pain, and swelling, Cardiovascular: Negative for chest pain, palpitations, and edema, Respiratory: Negative for shortness of breath, cough, wheezing, and pleuritic chest pain, Abdomen/GI: Positive abdominal pain and nausea 04:08 All other systems are negative, Exam: 04:08 Constitutional: This is a well developed, well nourished patient who is awake, alert, sp4 moderate distress secondary to pain 05:31 ECG was reviewed by the Attending Physician. EKG time 0 150 sinus rhythm with sp4 premature atrial complexes at a rate of 83, left ventricular hypertrophy Vital Signs: 00:32 BP 176 / 93; Pulse 94; Resp 18; Temp 98; Pulse Ox 99% ; Weight 72.57 kg; Height 5 ft. 9 jj7 in. ; Pain 10/10; 01:30 BP 161 / 87; Pulse 79; Resp 29; Pulse Ox 99% ; jj7 02:30 BP 175 / 88; Pulse 90; Resp 17 S; Pulse Ox 100% on R/A; ha1 03:27 BP 188 / 76; Pulse 81; Resp 19; Pulse Ox 99% ; jj7 04:30 BP 173 / 91; Pulse 86; Resp 20; Pulse Ox 99% ; jj7 04:57 BP 127 / 102; Pulse 92; Resp 19; Pulse Ox 99% ; jj7 00:32 Body Mass Index 23.63 (72.57 kg, 175.26 cm) j7 00:32 Pain Scale: Adult jj7 MDM: 01:07 Patient medically screened. sp4 03:12 ED course: EXAM: XR Chest, 1 View CLINICAL HISTORY: CHEST PAIN TECHNIQUE: Frontal view sp4 of the chest. COMPARISON: No relevant prior studies available. FINDINGS: Lungs: Unremarkable. No consolidation. Pleural space: Unremarkable. No pneumothorax. Heart: Unremarkable. No cardiomegaly. Mediastinum: Unremarkable. Normal mediastinal contour. Bones/joints: Multilevel spondylosis. No acute fracture. Vasculature: Thoracic aortic atherosclerosis. IMPRESSION: No acute disease.. 03:58 ED course: CT - FINDINGS: SUPPORTIVE DEVICES: None. LOWER CHEST: Mild basilar sp4 scarring/atelectasis. Unremarkable imaged heart. ABDOMEN AND PELVIS: Liver: Diffuse hypoenhancement relative to the spleen. Small calcification in the right lobe. Gallbladder and bile ducts: Gallbladder distention with multiple small layering stones. No evident ductal dilation. Pancreas: Normal. Spleen: Normal. Adrenal glands: Normal. Kidneys and ureters: Subcentimeter left Bosniak I benign renal cysts. No follow-up imaging is recommended. JACR 2018 Apr; 264-273, Management of the Incidental Renal Mass on CT, [employer] 2020; [phone], Bosniak Classification of Cystic Renal Masses, Version 2019. Otherwise unremarkable. Bladder: Nondistended without evident abnormality. Reproductive organs: Prostatomegaly. GI tract: Unremarkable distal esophagus. Wall thickening of the gastric body and antrum, surrounding an area of focal posterior thinning (coronal image 24/112, sagittal image 60/145). The duodenum and proximal small bowel are unremarkable. Fecal contents within the distal small bowel suggesting delayed transit. No evidence of appendicitis. The large bowel is normal in caliber without wall thickening. Distal colonic diverticulosis. Lymph nodes: No evident adenopathy. Peritoneum: Moderate to large volume of four-quadrant ascites measuring simple attenuation. Moderate volume pneumoperitoneum. No identified fluid collection. Abdominal wall: Umbilical mesh repair. Vessels: Atherosclerosis without evidence of aneurysm. MUSCULOSKELETAL: No acute osseous abnormality. Degenerative change of the spine and pelvis. IMPRESSION: 1. Moderate to large volume ascites and moderate volume free air suspected secondary to gastric ulcer perforation. No other obvious hollow viscus source for the peritoneal findings. Surgical or gastroenterology consultation is recommended. 2. Distal colonic diverticulosis. 3. Distended gallbladder with multiple small gallstones. Correlate with hepatic enzymes and right upper quadrant ultrasound if there is sufficient clinical concern for acute cholecystitis. 4. Additional chronic and incidental findings above.. 04:17 Differential Diagnosis altered mental status, sepsis, flu, Bowel obstruction. Data sp4 reviewed: vital signs, nurses notes, EMS record, old medical records, lab test result(s), EKG, radiologic studies, CT scan, plain films. Consideration of Admission/Observation Patient was admitted/placed on observation. Escalation of care including admission/observation considered. Management of patient was discussed with the following: Hospitalist: Jesus ESTRADA . Book Canvasser: Yesenia ESTRADA . ED course: Patient's CAT scan revealed moderate intraperitoneal fluid and moderate amount of free air secondary to suspected gastric ulcer perforation. Patient was emergency lead discussed with the general surgeon. General surgeon agreed to take patient to the OR for exploratory laparotomy. Patient is hemodynamically stable at this time slightly on the hypertensive side. . ED course: IV Zosyn ordered to cover for intra-abdominal infections. 04/03 00:38 Order name: Basic Metabolic Panel; Complete Time: 0504/03 00:38 Order name: CBC with Diff; Complete Time: 05:04/03 00:38 Order name: LFT's; Complete Time: :30 04/03 00:38 Order name: Magnesium; Complete Time: :04/03 00:38 Order name: NT PRO-BNP; Complete Time: :04/03 00:38 Order name: PT-INR; Complete Time: :04/03 00:38 Order name: Troponin HS; Complete Time: 05:30 04/03 00:38 Order name: Lipase; Complete Time: 05:04/03 00:39 Order name: Blood Culture Adult (2) 4 04/03 00:39 Order name: Lactate w/ 2H reflex if indic.; Complete Time: 05:30 4 04/03 04:11 Order name: Type And Screen 4 04/03 04:36 Order name: CBC Smear Scan; Complete Time: 05:30 EDMS 04/03 04:50 Order name: Urinalysis w/ reflexes EDMS 04/03 04:50 Order name: CBC with Automated Diff EDMS 04/03 04:50 Order name: CBC with Automated Diff EDMS 04/03 04:50 Order name: Comprehensive Metabolic Panel EDMS 04/03 04:50 Order name: Comprehensive Metabolic Panel EDMS 04/03 04:50 Order name: Magnesium EDMS 04/03 04:50 Order name: Magnesium EDMS 04/03 04:50 Order name: Phosphorus EDMS 04/03 04:50 Order name: Phosphorus EDMS 04/03 00:38 Order name: XRAY Chest (1 view) [facility] 04/03 00:38 Order name: CT Abd/Pelvis - IV Contrast Only [facility] 04/03 04:55 Order name: Echo with Doppler [facility] 04/03 00:38 Order name: EKG; Complete Time: 00:38 4 04/03 00:38 Order name: Cardiac monitoring; Complete Time: 01: [facility] 04/03 00:38 Order name: EKG - Nurse/Tech; Complete Time: 02:06 [facility] 04/03 00:38 Order name: IV Saline Lock; Complete Time: 01: [facility] 04/03 00:38 Order name: Labs collected and sent; Complete Time: : [facility] 04/03 00:38 Order name: O2 Per Protocol; Complete Time: 01: [facility] 04/03 00:38 Order name: O2 Sat Monitoring; Complete Time: : [facility] EC:31 Rate is 83 beats/min. Rhythm is regular, Normal Sinus Rhythm with PACs. QRS [place] is sp4 Normal. MD interval is normal. QRS interval is normal. QT interval is normal. No Q waves. T waves are Normal. No ST changes noted. Clinical impression: No evidence of ischemia. Interpreted by me. Reviewed by me. Administered Medications: 01:06 Drug: NS 0.9% IV 1000 ml IV at 75 ml/hr continuous Route: IV; Rate: 75 ml/hr; Site: j right antecubital; 05:00 Follow up: IV Status: Infusion continued upon admission jj7 01:07 Drug: morphine IVP or IV 4 mg IVP once over 4 mins Route: IVP; Infused Over: 4 mins; jj7 Site: right antecubital; 01:15 Follow up: Response: Pain is decreased jj7 01:07 Drug: Ondansetron IVP 4 mg IVP once; over 2 minutes Route: IVP; Site: right antecubital;jj7 01:15 Follow up: Response: No adverse reaction j7 04:01 Drug: morphine IVP or IV 4 mg IVP once over 4 mins Route: IVP; Infused Over: 4 mins; jj7 Site: right antecubital; 04:15 Follow up: Response: Pain is decreased j 04:09 Drug: metoCLOPramide IVP 10 mg IVP once; over 1 to 2 minutes Route: IVP; Site: right j antecubital; 04:15 Follow up: Response: No adverse reaction j7 04:10 Drug: Piperacillin-Tazobactam IVPB 3.375 grams IVPB once over 60 mins; (mix in NS 100 jj7 mL) Route: IVPB; Infused Over: 60 mins; Site: right antecubital; 04:58 Follow up: IV Status: Infusion continued upon admission jj7 Disposition Summary: 04/03/23 04:08 Hospitalization Ordered Notes: Hospitalization Status: Inpatient Admission sp4 Provider: Herminio Lee Location: Telemetry/[facility] (Inpatient) sp4 Condition: Serious sp4 Problem: new sp4 Symptoms: have improved sp4 Bed/Room Type: Standard sp4 Room Assignment: sp4 Diagnosis - Perforated peptic ulcer, free intra-abdominal air, free intra-abdominal fluid, sp4 acute peritonitis Forms: - Medication Reconciliation Form sp4 - SBAR form sp4 - Leadership Thank You Letter sp4 Signatures: Dispatcher [employer] Alejandro Bowman RN RN jj7 Milind Lainez MD MD sp4
--- NOTE | 2023-04-03 04:36 | ER ---
Nurse's Notes [facility] Name: Pao Richards Age: 82 yrs Sex: Male : 1940 Arrival Date: 04/03/2023 Time: 00:20 Bed 16 Private MD: Diagnosis: Perforated peptic ulcer, free intra-abdominal air, free intra-abdominal fluid, acute peritonitis Presentation: 04/03 00:32 Chief complaint: Patient states: ABD AND LEFT SHOULDER PAIN STARTED TONIGHT. PT TOOK jj7 ABOUT 1000MG OF ASA AND SOME TYLENOL FOR HIS PAIN. Coronavirus screen: At this time, the client does not indicate any symptoms associated with coronavirus-19. Ebola Screen: No symptoms or risks identified at this time. Initial Sepsis Screen: Does the patient meet any 2 criteria? HR > 90 bpm. Yes Does the patient have a suspected source of infection? No. Patient's initial sepsis screen is negative. Risk Assessment: Do you want to hurt yourself or someone else? Patient reports no desire to harm self or others. Onset of symptoms was April 03, 2023. 00:32 Method Of Arrival: EMS: [facility] jj7 00:32 Acuity: ALEXYS 3 jj7 Triage Assessment: 00:38 General: Appears in no apparent distress. uncomfortable, Behavior is calm, cooperative, jj7 appropriate for age. Pain: Complains of pain in abdomen and anterior aspect of left shoulder. Historical: - Allergies: 00:38 No Known Allergies; jj7 - PSHx: 00:38 None; jj7 - Immunization history:: Client reports receiving the 2nd dose of the Covid vaccine, Flu vaccine is up to date. - Social history:: Smoking status: Patient reports the use of cigarette tobacco products, smokes one pack cigarettes per day. Patient/guardian denies using alcohol, street drugs. - Family history:: not pertinent. Screenin:40 Abuse screen: Denies threats or abuse. Nutritional screening: No deficits noted. jj7 Tuberculosis screening: No symptoms or risk factors identified. Assessment: 00:40 Reassessment: SEE TRIAGE ASSESSMENT. jj7 02:00 Reassessment: Patient and/or family updated on plan of care and expected duration. Pain ha1 level reassessed. Patient is alert, oriented x 3, equal unlabored respirations, skin warm/dry/pink. PAIN 3/10 Patient states feeling better. Patient states symptoms have improved. 04:53 Reassessment: [facility] WITH [facility] AT BEDSIDE TO TAKE PT FOR SURGERY. jj7 Vital Signs: 00:32 BP 176 / 93; Pulse 94; Resp 18; Temp 98; Pulse Ox 99% ; Weight 72.57 kg; Height 5 ft. 9 jj7 in. ; Pain 10/10; 01:30 BP 161 / 87; Pulse 79; Resp 29; Pulse Ox 99% ; jj7 02:30 BP 175 / 88; Pulse 90; Resp 17 S; Pulse Ox 100% on R/A; ha1 03:27 BP 188 / 76; Pulse 81; Resp 19; Pulse Ox 99% ; jj7 04:30 BP 173 / 91; Pulse 86; Resp 20; Pulse Ox 99% ; jj7 04:57 BP 127 / 102; Pulse 92; Resp 19; Pulse Ox 99% ; jj7 00:32 Body Mass Index 23.63 (72.57 kg, 175.26 cm) jj7 00:32 Pain Scale: Adult j7 ED Course: 00:31 Patient arrived in ED. jj7 00:37 Milind Lainez MD is Attending Physician. sp4 00:38 Triage completed. jj7 00:38 Arm band placed on right wrist. jj7 00:40 Patient has correct armband on for positive identification. Placed in gown. Bed in low jj7 position. Call light in reach. Side rails up X2. 00:40 Maintain EMS IV. Dressing intact. Good blood return noted. Site clean \T\ dry. Gauge \T\ jj 7 site: 18G RIGHT AC. 01:06 Lactate w/ 2H reflex if indic. Sent. jj7 01:06 Blood Culture Adult (2) Sent. jj7 01:07 Lipase Sent. jj7 01:08 Basic Metabolic Panel Sent. jj7 01:08 CBC with Diff Sent. jj7 01:08 LFT's Sent. jj7 01:08 Magnesium Sent. jj7 01:08 NT PRO-BNP Sent. jj7 01:08 PT-INR Sent. jj7 01:08 Troponin HS Sent. jj7 04:05 Herminio Lee MD is Hospitalizing Provider. sp4 04:35 XRAY Chest (1 view) In Process Unspecified. EDMS 04:36 CT Abd/Pelvis - IV Contrast Only In Process Unspecified. EDMS 05:25 No provider procedures requiring assistance completed. Patient admitted, IV remains in jj7 place. TO OR. Administered Medications: 01:06 Drug: NS 0.9% IV 1000 ml IV at 75 ml/hr continuous Route: IV; Rate: 75 ml/hr; Site: [facility] right antecubital; 05:00 Follow up: IV Status: Infusion continued upon admission jj7 01:07 Drug: morphine IVP or IV 4 mg IVP once over 4 mins Route: IVP; Infused Over: 4 mins; jj7 Site: right antecubital; 01:15 Follow up: Response: Pain is decreased jj7 01:07 Drug: Ondansetron IVP 4 mg IVP once; over 2 minutes Route: IVP; Site: right antecubital;jj7 01:15 Follow up: Response: No adverse reaction jj7 04:01 Drug: morphine IVP or IV 4 mg IVP once over 4 mins Route: IVP; Infused Over: 4 mins; jj7 Site: right antecubital; 04:15 Follow up: Response: Pain is decreased jj7 04:09 Drug: metoCLOPramide IVP 10 mg IVP once; over 1 to 2 minutes Route: IVP; Site: right 7 antecubital; 04:15 Follow up: Response: No adverse reaction jj7 04:10 Drug: Piperacillin-Tazobactam IVPB 3.375 grams IVPB once over 60 mins; (mix in NS 100 jj7 mL) Route: IVPB; Infused Over: 60 mins; Site: right antecubital; 04:58 Follow up: IV Status: Infusion continued upon admission jj7 Medication: 00:40 VIS not applicable for this client. jj7 Outcome: 04:08 Decision to Hospitalize by Provider. sp4 04:55 Admitted to OR accompanied by nurse, jj7 04:55 Condition: stable 05:27 Patient left the ED. jj7 Signatures: Dispatcher [employer] EDMS Eve Valadez RN RN ha1 Alejandro Cotton RN RN jj7 Potepalov, Milind, MD MD sp4
[2023-04-03] MEDS ORDERED: ONDANSETRON 4 MG/2 ML VIAL IV PRN (04:46)
[2023-04-03] MEDS ORDERED: Ringers Lactate 1,000 ML IV ONE ×3 (04:47→07:01)
[2023-04-03] MEDS ORDERED: SUCCINYLCHOLINE 20 MG/ML (10 ML) IV ONE (04:50)
[2023-04-03] MEDS ORDERED: ROCURONIUM 50 MG/5 ML VIAL IV ONE (04:54)
[2023-04-03] MEDS ORDERED: FENTANYL CITR 100 MCG/2 ML ONE (04:54)
[2023-04-03] MEDS ORDERED: LIDOCAINE 2% MPF 5 ML VIAL ONE (04:54)
[2023-04-03] MEDS ORDERED: propofoL 200 MG/20 ML VIAL IV ONE (04:54)
[2023-04-03] MEDS: BUPIVACAINE 0.25% PF 30 ML VIAL ONE ×2 (04:55→05:56)
[2023-04-03] MEDS ORDERED: Phenylephrine HCl 10 MG/ML 1 ML VIAL ONE (04:59)
[2023-04-03] MEDS ORDERED: NS 0.9% VIAL 10 ML ONE ×2 (05:00)
[2023-04-03] MEDS ORDERED: PANTOPRAZOLE INJ 80 MG in NA CHLORIDE 0.9% 250 ML IV SCH (05:00)
--- NOTE | 2023-04-03 05:19 | P.HP ---
Certification for Inpatient With expected LOS: >2 Midnights Practitioner: I am a practitioner with admitting privileges, knowledge of patient current condition, hospital course, and medical plan of care. Services: Services provided to patient in accordance with Admission requirements found in Title 42 Section 412.3 of the Code of Federal Regulations Patient History Date of Service: 04/03/23 Reason for admission: Abdominal pain History of Present Illness: 82-year-old male with a history of dementia was brought to the ED with acute onset of lower abdominal pain that started last night, became very severe and increased in intensity. Patient is a poor historian but states he has some nausea and denied any vomiting or diarrhea. On arrival to the ED initial SBP was 176. Labs notable for WBC 18.2k, H&H 13.5/33.5, platelets 335, MCV 107, Na 130, BUN/Cr 20/1.33, glucose 146 and BNP 673. Chest x-ray was negative for any acute finding however CT abdomen and pelvis revealed moderate to large volume ascites and moderate volume free air suspected secondary to gastric ulcer perforation. There was also diverticulosis and distended gallbladder with multiple small gallstones. Patient has required 2 doses of 4 mg IV morphine, IV fluid bolus and Zofran. He has been evaluated by general surgery and plan for emergency exploratory laparotomy this morning. Allergies No Known Allergies Allergy (Verified 02/27/23 14:32) Home Medications: Ciprofloxacin HCl [Cipro 500 MG Tablet] 500 mg PO BID #12 tab 11/23/19 Memantine HCl 50 mg PO DAILY 02/27/23 Physical Examination - Physical Exam General: Mild distress HEENT: Atraumatic, Normocephalic, Mucous membr. moist/pink Neck: Supple Respiratory: Clear to auscultation bilaterally, Normal air movement Cardiovascular: No edema, Abnormal pulses (Tachycardia) Gastrointestinal: Hypoactive, Non-distended, Tenderness Musculoskeletal: No swelling, No erythema, No tenderness, Erythema Integumentary: No rashes Neurological: Normal gait, Normal speech - Studies Laboratory Data (last 24 hrs) 04/03/23 04/03/23 04/03/23 01:37 01:37 01:37 WBC 18.20 H Hgb 13.5 L Hct 33.5 L Plt Count 385 PT 11.3 INR 1.03 Sodium 131 L Potassium 3.8 BUN 20 H Creatinine 1.33 H Glucose 146 H Magnesium 1.9 Total Bilirubin 0.9 AST 19 ALT 19 Alkaline Phosphatase 117 Lipase 60 Assessment and Plan - Plan Perforated gastric ulcer Protonix drip N.p.o., IV pain control, antiemetics Plan for emergent ex lap today Acute kidney injury Secondary to volume loss Start gentle hydration, noted elevated BNP Follow-up echo Tobacco use Nicotine patch History of dementia On memantine Microcytosis B12 level - Advance Directives Does patient have a Living Will: No Does patient have a Durable POA for Healthcare: No
[2023-04-03] MEDS ORDERED: SUGAMMADEX SODIUM 200 MG/2 ML VIAL IV ONE (06:00)
[2023-04-03] MEDS ORDERED: NA CHLORIDE 0.9% 1,000 ML IV SCH (06:00)
--- NOTE | 2023-04-03 06:31 | P.OP ---
Preoperative diagnosis: Perforated Viscus Postoperative diagnosis: Perforated Viscus Primary procedure: Exploratory Laparotomy with Justin Patch Repair of Gastric Ulcer Anesthesia: GETA Estimated blood loss: <10cc Specimen: None Findings: Perforated Pyloric Ulcer Complications: None Drain(s): MIREILLE drain (10mm Flat) Transferred to: ICU Condition: Serious
[2023-04-03] MEDS ORDERED: MEPERIDINE HCL 25 MG/ML SYR ONE (06:47)
[2023-04-03] MEDS ORDERED: LABETALOL 20 MG/4ML SYRINGE IV ONE (07:04)
[2023-04-03] MEDS: HYDROMORPHONE HCL 1 MG/ML INJ ONE ×2 (07:24→07:34)
[2023-04-03] MEDS: INSULIN REGULAR (HUMAN) 100 UNIT/ML SQ SCH ×4 (07:30→21:00)
--- NOTE | 2023-04-03 07:41 | OP ---
Date of Procedure: 04/03/2023 Surgeon: Armani Patterson MD, Brief History Of Present Illness: The patient is an 82-year-old male who came to the emergency room with acute onset of severe abdominal pain in the upper epigastric area beginning earlier today. He does have a history of GERD, but he noted no other significant changes other than this severe onset of pain which occurred when he rolled over in bed. As such when the pain got progressively worse, he came to the emergency room. The workup showed that he had a significant amount of free intraabdominal air and fluid consistent with an intestinal perforation. As such I explained the risks, benefits, and alternatives of exploratory laparotomy and possible bowel resection and indicated procedures including possible Justin patch repair of ulcer. I explained the risks including but not limited to bleeding, infection, damage to internal organs, blood clots, heart attack, strokes, trouble in the perioperative period, complications with respect to wound care, hernias in the future, other unforeseen complications in the perioperative period, and need for more surgery. The patient displayed understanding of above stated plan, agreed to proceed as indicated. Preoperative Diagnosis: Perforated viscus. Postoperative Diagnosis: Perforated viscus. Procedure Performed: Exploratory laparotomy with Justin patch repair of perforated pyloric gastric ulcer. Anesthesia: General endotracheal. Estimated Blood Loss: 10 cc. Specimen: None. Findings: A perforated pyloric anterior ulcer was noted approximately 0.8 cm in size. Significant intraabdominal contamination with approximately 1.5 L of bilious contaminated fluid throughout all 4 quadrants of the abdomen. Complications: None. Drains: A 10 mm flat MIREILLE drain next to the Justin patch repair. The patient was transferred to ICU in serious condition. Procedure In Detail: After informed consent was obtained, the patient was brought to the operating room. Prepped and draped in the usual sterile fashion. After adequate anesthesia was achieved, we made a midline laparotomy incision down through the upper epigastric region with a 10 blade down to subcutaneous tissues and dissected down through the adipose tissue to expose the fascia which was entered using the electrocautery. The peritoneum was then grasped, elevated and opened sharply with Metzenbaum scissors safely without evidence of complication. I immediately encountered a significant amount of bilious contaminated abdominal fluid. The abdomen was then opened in its entirety using electrocautery under direct visualization. At this point, I suctioned out all of the effluent and got approximately 1.5 L of contaminated bilious discolored fluid which was found in all 4 quadrants of the patient's abdomen. I then palpated the stomach and found the perforated gastric ulcer on the anterior aspect of the pylorus approximately 0.8 cm in size. I cleaned the edges of it by wiping away any debris, which was evident in this area, irrigated it, found the edges to be clean at this point and placed 3 separate 2-0 silk stay sutures on each side. I then brought in a vascularized pedicle of omentum from the transverse colon up through this area and secured it with the same said 3 interrupted 2-0 silk sutures. After this was secured, I tested it and found it to be intact without evidence of leak. I then had the anesthesiologist place an NG tube, and I placed the NG tube manually adjacent to the repair. I then brought in a 10 mm flat MIREILLE drain through a separate stab incision in the right upper quadrant and secured it next to the Justin patch repair and secured the drain with a drain stitch. Three single interrupted silk sutures were used to repair the Justin patch. At this point, the abdomen was copiously irrigated with approximately 2.5 L of warm saline throughout the entire abdominal compartment which was irrigated. I then suctioned out all effluent at this point until it was clear. At this point, I placed abdominal the abdominal FISH Device and closed the abdomen primarily. I did encounter at the inferior aspect of the incision near the supraumbilical position, a previously placed mesh which was partially opened during the procedure. I simply sewed this as well using the #1 looped PDS suture and closed the abdomen in its entirety at this point without incident or complication. The abdominal fissure was removed just prior to closure and tissue approximation was good with good fascial closure. At this point, I irrigated the skin once again and reapproximated the skin using interrupted suresh after electrocautery was used to achieve hemostasis. A sterile dressing was then placed over top. The patient tolerated the procedure well without incident or complication. Transferred to ICU in serious condition. All counts were correct at the end of the case. JAYLIN/LORRI Voice ID: [id number] Report ID: [id number] DAMION
--- NOTE | 2023-04-03 07:46 | RAD REPORT ---
EXAM DESCRIPTION: RAD - Abdomen 1 View (KUB) - 04/03/2023 7:36 am CLINICAL HISTORY: Device placement nasogastric tube placement FINDINGS: A portion of the a NG tube is coiled within the gastric fundus. The tip lies within the di stal stomach
[2023-04-03] MEDS ORDERED: NICOTINE 7 MG/PAT TD SCH (09:00)
[2023-04-03] MEDS: D5.45NS W/KCL 20MEQ 1,000 ML IV SCH ×3 (09:32→21:23)
[2023-04-03] MEDS: PANTOPRAZOLE INJ 80 MG in NA CHLORIDE 0.9% 250 ML IV SCH ×3 (09:32→19:00)
[2023-04-03 10:47] LABS: Calcium Oxalate Crystals- Ur Few /HPF (None Seen); Urine Bacteria <20 /HPF (<20); Urine Bilirubin NEGATIVE (Negative); Urine Blood 2+ (Negative); Urine Clarity Turbid (Clear); Urine Color Yellow (Yellow); Urine Glucose NEGATIVE (Negative); Urine Mucus Slight /HPF (None Seen); Urine Protein 1+ (Negative); Urine RBC 21-50 /HPF (None Seen); Urine Urobilinogen 1+ (Normal); Urine pH 5.5 (5.0-7.0)
[2023-04-03 10:48] LABS: Specific Gravity > 1.030 (1.005-1.030)
[2023-04-03 11:02] LABS: Albumin 2.8 g/dL (3.4-5.0); Bilirubin Total 1.7 mg/dL (0.2-1.0); Potassium 4.6 mEq/L (3.5-5.1); Protein, Total 6.1 g/dL (6.4-8.2)
[2023-04-03 11:25] LABS: Absolute Lymphocytes (CBC) 0.6 K/uL (0.7-4.9); Lymphocytes % 2.6 % (15.3-44.8); MPV 8.1 fL (7.6-11.3); Platelets 357 thou/uL (152-406); RBC Red Blood Cell Count 3.68 M/uL (4.33-5.43)
[2023-04-03 11:52] LABS: Hematocrit 40.1 % (39.6-49.0)
[2023-04-03 11:54] LABS: MCV 94.7 fL (80-100)
[2023-04-03] MEDS: HYDROMORPHONE HCL 1 MG/ML INJ IV PRN ×3 (12:26→22:19)
[2023-04-03] MEDS: PIPER TAZO 3.375 GM in NA CHLORIDE 0.9% 100 ML IV SCH ×2 (12:27→21:23)
--- NOTE | 2023-04-03 13:16 | RAD REPORT ---
EXAM DESCRIPTION: CT - Abdomen Pelvis W Contrast - 04/03/2023 6:25 am CLINICAL HISTORY: Male, 82 years old, ABD PAIN COMPARISON: None. TECHNIQUE: CT acquisition of the abdomen and pelvis following the administration of IV contrast. Cor onal and sagittal reformatted images provided. This exam was performed according to departmental dose -optimization program which includes automated exposure control, adjustment of the mA and/or kV accor ding to patient size, and/or use of iterative reconstruction technique. FINDINGS: SUPPORTIVE DEVICES: None. LOWER CHEST: Mild basilar scarring/atelectasis. Unremarkable imaged heart. ABDOMEN AND PELVIS: Liver: Diffuse hypoenhancement relative to the spleen. Small calcification in the right lobe. Gallbladder and bile ducts: Gallbladder distention with multiple small layering stones. No evident du ctal dilation. Pancreas: Normal. Spleen: Normal. Adrenal glands: Normal. Kidneys and ureters: Subcentimeter left Bosniak I benign renal cysts. No follow-up imaging is recomme nded. JACR 2018 Apr; [id number], Management of the Incidental Renal Mass on CT, [employer] 2020; [id number], B osniak Classification of Cystic Renal Masses, Version 2019. Otherwise unremarkable. Bladder: Nondistended without evident abnormality. Reproductive organs: Prostatomegaly. GI tract: Unremarkable distal esophagus. Wall thickening of the gastric body and antrum, surrounding an area of focal posterior thinning (coronal image 24/112, sagittal image 60/145). The duodenum and p roximal small bowel are unremarkable. Fecal contents within the distal small bowel suggesting delayed transit. No evidence of appendicitis. The large bowel is normal in caliber without wall thickening. Distal colonic diverticulosis. Lymph nodes: No evident adenopathy. Peritoneum: Moderate to large volume of four-quadrant ascites measuring simple attenuation. Moderate volume pneumoperitoneum. No identified fluid collection. Abdominal wall: Umbilical mesh repair. Vessels: Atherosclerosis without evidence of aneurysm. MUSCULOSKELETAL: No acute osseous abnormality. Degenerative change of the spine and pelvis. IMPRESSION: 1. Moderate to large volume ascites and moderate volume free air suspected secondary t o gastric ulcer perforation. No other obvious hollow viscus source for the peritoneal findings. Surgi therese or gastroenterology consultation is recommended. 2. Distal colonic diverticulosis. 3. Distended gallbladder with multiple small gallstones. Correlate with hepatic enzymes and right u pper quadrant ultrasound if there is sufficient clinical concern for acute cholecystitis. 4. Additional chronic and incidental findings above. I communicated the above findings by telephone with Dr. Milind Lainez MD at 04/03/2023 3:[address], who demonstrated understanding of the above finding(s)/recommendation(s) and provided positive re ad back of the communication. Electronically signed by: Amado Schultz MD 04/03/2023 03:49 AM BANQUET FOOD SERVER Due to temporary technical issues with the PACS/Fluency reporting system, reports are being signed by the in house radiologist without review as a courtesy to ensure prompt reporting. The interpreting r adiologist is fully responsible for the content of the report.
[2023-04-03 13:39] LABS: Platelet Estimate ADEQ
[2023-04-03 13:40] LABS: Agglutinates, Cold (RBC Morph) NOTED; Blood Morphology Comment NOTED (NOT SEEN)
--- NOTE | 2023-04-03 14:19 | RAD REPORT ---
EXAM DESCRIPTION: RAD - Chest Single View - 04/03/2023 1:57 am CLINICAL HISTORY: CHEST PAIN TECHNIQUE: Frontal view of the chest. COMPARISON: No relevant prior studies available. FINDINGS: Lungs: Unremarkable. No consolidation. Pleural space: Unremarkable. No pneumothorax. Heart: Unremarkable. No cardiomegaly. Mediastinum: Unremarkable. Normal mediastinal contour. Bones/joints: Multilevel spondylosis. No acute fracture. Vasculature: Thoracic aortic atherosclerosis. IMPRESSION: No acute disease. Electronically signed by: Paulo Watkins MD 04/03/2023 02:16 AM DAY CAMP UNIT LEADER Due to temporary technical issues with the PACS/Fluency reporting system, reports are being signed by the in house radiologist without review as a courtesy to ensure prompt reporting. The interpreting r adiologist is fully responsible for the content of the report.
[2023-04-03] MEDS ORDERED: HYDROMORPHONE HCL 1 MG/ML INJ ONE ×2 (18:10→22:18)
[2023-04-04] MEDS: PIPER TAZO 3.375 GM in NA CHLORIDE 0.9% 100 ML IV SCH ×3 (04:34→19:21)
[2023-04-04] MEDS: HYDROMORPHONE HCL 1 MG/ML INJ IV PRN ×3 (04:45→19:39)
[2023-04-04] MEDS ORDERED: NA CHLORIDE 0.9% 250 ML ONE (05:53)
[2023-04-04] MEDS ORDERED: PANTOPRAZOLE 40 MG INJ ONE (05:53)
[2023-04-04] MEDS: PANTOPRAZOLE INJ 80 MG in NA CHLORIDE 0.9% 250 ML IV SCH ×2 (05:59→15:00)
[2023-04-04 06:17] LABS: Albumin 2.2 g/dL (3.4-5.0); Bilirubin Total 1.4 mg/dL (0.2-1.0); Magnesium 1.8 mg/dL (1.6-2.4); Phosphorus 3.1 mg/dL (2.5-4.9); Potassium 5.5 mEq/L (3.5-5.1); Protein, Total 5.3 g/dL (6.4-8.2)
[2023-04-04 06:33] LABS: Hematocrit 31.5 % (39.6-49.0); Lymphocytes % 6.4 % (15.3-44.8); MCV 97.3 fL (80-100); MPV 8.3 fL (7.6-11.3); Platelets 294 thou/uL (152-406); RBC Red Blood Cell Count 3.24 M/uL (4.33-5.43)
[2023-04-04] MEDS: D5 0.9 NS 1,000 ML IV SCH ×2 (07:00→17:30)
[2023-04-04] MEDS: INSULIN REGULAR (HUMAN) 100 UNIT/ML SQ SCH ×4 (07:30→21:00)
[2023-04-04] MEDS ORDERED: MAGNESIUM SULFATE 1 gm IVPB 1 GM/100 ML BAG IV ONE (08:00)
[2023-04-04] MEDS: ENOXAPARIN 40 MG/0.4 ML SQ SCH (08:12)
--- NOTE | 2023-04-04 08:29 | ECHO ---
HEIGHT: 5 ft 9 in WEIGHT: 159 lb 15.831 oz DATE OF STUDY: 04/03/[address]: Herminio Lee MD 2-DIMENSIONAL: YES M.MODE: YES DOPPLER: YES COLOR FLOW: YES TDS: PORTABLE: YES DEFINITY: BUBBLE STUDY: DIAGNOSIS: SHORTNESS OF BREATH/ ELEVATED BNP CARDIAC HISTORY: CATHERIZATION: SURGERY: PROSTHETIC VALVE: PACEMAKER: MEASUREMENTS (cm) DIASTOLIC (NORMALS) SYSTOLIC (NORMALS) IVSd 1.0 (0.6-1.2) LA Diam (1.9-4.0) LVEF 65% LVIDd 4.1 (3.5-5.7) LVIDs 2.6 (2.0-3.5) %FS 35% LVPWd 1.1 (0.6-1.2) Ao Diam 3.4 (2.0-3.7) 2 DIMENSIONAL ASSESSMENT: RIGHT ATRIUM: NORMAL LEFT ATRIUM: NORMAL RIGHT VENTRICLE: NORMAL LEFT VENTRICLE: NORMAL TRICUSPID VALVE: MILD TRICUSPID REGURGITATION MITRAL VALVE: MILD MITRAL REGURGITATION PULMONIC VALVE: NORMAL AORTIC VALVE: NORMAL PERICARDIAL EFFUSION: NONE AORTIC ROOT: NORMAL LEFT VENTRICULAR WALL MOTION: NORMAL DOPPLER/COLOR FLOW: SEE BELOW COMMENTS: 1. NORMAL LEFT VENTRICULAR EJECTION FRACTION 60-65% WITH NORMAL WALL MOTION 2. GRADE I DIASTOLIC DYSFUNCTION 3. MILD MITRAL REGURGITATION 4. MILD TRICUSPID REGURGITATION TECHNOLOGIST: SAE LUCAS
[2023-04-04 08:48] LABS: Blood Morphology Comment NOT SEEN (NOT SEEN); Platelet Estimate ADEQ
--- NOTE | 2023-04-04 16:31 | EKG ---
Test Date: 2023-04-03 Test Time: 01:50:08 Egg Processing Supervisor: LANI MEASUREMENT RESULTS: Intervals: Rate: 83 OK: 162 QRSD: 122 QT: 382 QTc: 448 [place]: P: 107 OK: 162 QRS: -27 T: 70 INTERPRETIVE STATEMENTS: Sinus rhythm with premature atrial complexes Left ventricular hypertrophy with QRS widening Abnormal ECG Compared to ECG 08/07/2022 15:52:02 Atrial premature complex(es) now present Left ventricular hypertrophy now present Sinus bradycardia no longer present Incomplete right bundle-branch block no longer present Left anterior fascicular block no longer present ST (T wave) deviation no longer present Electronically Signed On 04-04-23 16:26:35 DISTRICT RANGER by Pacheco [place]
[2023-04-04] MEDS ORDERED: NA CHLORIDE 0.9% 100 ML ONE (19:19)
[2023-04-04] MEDS ORDERED: ZIPRASIDONE MESYLA 20 MG/VIAL IM ONE ×2 (20:26→20:35)
[2023-04-04] MEDS ORDERED: WATER FOR INJ,STERILE 10 ML IM PRN (20:26)
[2023-04-04] MEDS: Mupirocin NASAL 2 APPL/1 GM TUBE NAS SCH (20:26)
[2023-04-04] MEDS ORDERED: NICOTINE 21 MG/PAT TD ONE (20:31)
[2023-04-04] MEDS ORDERED: WATER FOR INJ,STERILE 10 ML ONE (20:35)
[2023-04-04] MEDS: NICOTINE 21 MG/PAT TD SCH (20:49)
[2023-04-05] MEDS: PANTOPRAZOLE INJ 80 MG in NA CHLORIDE 0.9% 250 ML IV SCH ×3 (00:40→20:18)
[2023-04-05] MEDS ORDERED: CEFAZOLIN 1 GM in NA CHLORIDE 0.9% 50 ML IVPB SCH (01:00)
[2023-04-05] MEDS: D5 0.9 NS 1,000 ML IV SCH ×2 (02:57→11:31)
[2023-04-05] MEDS: PIPER TAZO 3.375 GM in NA CHLORIDE 0.9% 100 ML IV SCH ×3 (03:35→19:56)
[2023-04-05 05:52] LABS: Bilirubin Total 1.7 mg/dL (0.2-1.0); Magnesium 2.3 mg/dL (1.6-2.4); Phosphorus 1.8 mg/dL (2.5-4.9); Protein, Total 5.4 g/dL (6.4-8.2)
[2023-04-05] MEDS: HYDROMORPHONE HCL 1 MG/ML INJ IV PRN ×2 (06:18→09:54)
[2023-04-05] MEDS ORDERED: DEXMEDETOMIDINE HCL 200 MCG in NA CHLORIDE 0.9% 98 ML IV SCH (06:30)
[2023-04-05] MEDS ORDERED: DEXMEDETOMIDINE HCL 200 MCG/2 ML VIAL ONE (06:35)
[2023-04-05] MEDS ORDERED: NA CHLORIDE 0.9% 100 ML ONE ×2 (06:35→11:23)
[2023-04-05] MEDS: INSULIN REGULAR (HUMAN) 100 UNIT/ML SQ SCH ×4 (07:30→21:00)
[2023-04-05] MEDS ORDERED: HALOPERIDOL LACT 5 MG/ML INJ IV ONE ×2 (08:10→11:10)
[2023-04-05 08:38] LABS: Absolute Lymphocytes (CBC) 1.5 K/uL (0.7-4.9); Hematocrit 27.1 % (39.6-49.0); Lymphocytes % 5.9 % (15.3-44.8); MCV 97.3 fL (80-100); MPV 8.8 fL (7.6-11.3); Platelets 221 thou/uL (152-406); RBC Red Blood Cell Count 2.79 M/uL (4.33-5.43)
[2023-04-05] MEDS ORDERED: NICOTINE 21 MG/PAT TD ONE (08:56)
[2023-04-05] MEDS: Mupirocin NASAL 2 APPL/1 GM TUBE NAS SCH ×2 (08:57→20:18)
[2023-04-05] MEDS: NICOTINE 21 MG/PAT TD SCH (08:57)
[2023-04-05] MEDS: ENOXAPARIN 40 MG/0.4 ML SQ SCH (08:57)
[2023-04-05] MEDS: DEXMEDETOMIDINE HCL 1,000 MCG in NA CHLORIDE 0.9% 490 ML IV SCH ×2 (09:16→20:00)
[2023-04-05] MEDS ORDERED: HYDROMORPHONE HCL 1 MG/ML INJ ONE (09:51)
[2023-04-05] MEDS ORDERED: MORPHINE 2 MG/ML SYR ONE (10:09)
[2023-04-05] MEDS: MORPHINE 2 MG/ML SYR IV PRN ×2 (10:13→19:55)
--- NOTE | 2023-04-05 11:21 | RAD REPORT ---
EXAM DESCRIPTION: RAD - Upper GI Series Wo KUB - 04/05/2023 8:40 am CLINICAL HISTORY: NG PLACEMENT COMPARISON: Abdomen Pelvis W Contrast dated 04/03/2023 TECHNIQUE: Serial AP images of the abdomen FINDINGS: Images obtained before and after placement of the weighted enteric tube, with tip of the t ube projecting over the proximal body of the stomach, satisfactory position. And injected contrast on the final image demonstrates opacification within the upper stomach lumen. Nonobstructive bowel gas pattern. No evidence of air-fluid levels, or free air. Surgical drain in the right paramidline upper abdomen. Skin suresh of laparotomy noted. Bibasilar atelectatic changes. Ri ght IJ CVC in place. IMPRESSION: Satisfactory positioning of the enteric tube in the upper aspect of the stomach.
[2023-04-05] MEDS ORDERED: HALOPERIDOL LACT 5 MG/ML INJ ONE (11:23)
[2023-04-05] MEDS ORDERED: PIPERACIL/TAZO 3.375 GM VIAL IV ONE (11:24)
[2023-04-05] MEDS: AA 5%/D20W/ELECTROLYTES-TPN 2,000 ML, Lipids 20% 250 ML with MULTIVITAMINS INJ 10 ML IV SCH ×3 (17:26)
--- NOTE | 2023-04-05 19:58 | RAD REPORT ---
EXAM DESCRIPTION: RAD - Chest Single View - 04/05/2023 12:29 am CLINICAL HISTORY: The patient is 82 years old and is Male; PICC Line insertion TECHNIQUE: Frontal view of the chest. COMPARISON: Chest radiograph dated 29/06/2023 FINDINGS: LUNGS: Mild coarse interstitial markings are present. There are slightly low lung volume s. No consolidation. PLEURAL SPACE: Unremarkable. No pneumothorax. HEART: Unremarkable. No cardiomegaly. MEDIASTINUM: Unremarkable. Normal mediastinal contour. BONES/JOINTS: Multilevel degenerative change of the spine is present. No acute fracture. TUBES, LINES AND DEVICES: A right upper extremity PICC is present with the tip in the region of t he SVC. UPPER ABDOMEN: Unremarkable as visualized. IMPRESSION: A right upper extremity PICC is present with the tip in the region of the SVC. Electronically signed by: Radha Snell MD 04/05/2023 12:43 AM GLASSINE MACHINE TENDER Due to temporary technical issues with the PACS/Fluency reporting system, reports are being signed by the in house radiologists without review as a courtesy to insure prompt reporting. The interpreting radiologist is fully responsible for the content of the report.
[2023-04-05] MEDS: HALOPERIDOL LACT 5 MG/ML INJ IV SCH (20:00)
--- NOTE | 2023-04-05 23:40 | P.PN ---
Date of Service: 04/04/23 Subjective Patient is agitated and lethargic. Patient was given sedatives overnight. However, still very confused. Apparently patient with mild dementia. Patient's delirious from multifactorial etiologies. Objective -Vitals Reviewed -Physical Exam General: Mild distress; dementia and delirious; patient with delirium HEENT: Within normal limits Respiratory: Clear to auscultation bilaterally Cardiovascular: No edema, Abnormal pulses (Tachycardia) Gastrointestinal: Slightly distended with appropriate tenderness and dressing intact. Bowel sounds hypoactive Musculoskeletal: No swelling, No erythema, No tenderness, Erythema Neurological: No focal deficits Assessment and Plan -Assessment/Plan Perforated gastric ulcer status post Justin patch repair Protonix drip N.p.o., IV pain control, antiemetics Continue with IV hydration; may need to do TPN Acute kidney injury continue with gentle hydration monitor renal function closely Tobacco use Nicotine patch History of dementia/acute delirium On memantine; currently with acute delirium. Microcytosis B12 level - Advance Directives Does patient have a Living Will: No Does patient have a Durable POA for Healthcare: No
--- NOTE | 2023-04-05 23:44 | P.PN ---
Date of Service: 04/05/23 Subjective Patient was started on Precedex drip. Patient is more comfortable and calm at this time after 2 doses of Haldol. Continue with pain medication as needed but need to titrate the pain medication down. Will need to start nutritional support over the next couple of days. Overall, patient remained stable and prognosis remains poor. Objective -Vitals Reviewed -Physical Exam General: Mild distress; dementia and delirious; patient with delirium HEENT: Within normal limits Respiratory: Clear to auscultation bilaterally Cardiovascular: No edema, Abnormal pulses (Tachycardia) Gastrointestinal: Slightly distended with appropriate tenderness and dressing intact. Bowel sounds hypoactive Musculoskeletal: No swelling, No erythema, No tenderness, Erythema Neurological: No focal deficits Assessment and Plan -Assessment/Plan Perforated gastric ulcer status post Justin patch repair Continue with Protonix drip N.p.o., IV pain control, antiemetics Continue with IV hydration; may need to do TPN Acute kidney injury continue with gentle hydration; monitor renal function closely. Slowly improving. Tobacco use Nicotine patch History of dementia/acute delirium Currently with treatment for acute delirium. Macrocytosis Monitor H&H; supplementation as needed - Advance Directives Does patient have a Living Will: No Does patient have a Durable POA for Healthcare: No
[2023-04-06] MEDS ORDERED: NA CHLORIDE 0.9% 250 ML ONE (00:07)
[2023-04-06] MEDS ORDERED: PANTOPRAZOLE 40 MG INJ ONE (00:07)
[2023-04-06] MEDS: PANTOPRAZOLE INJ 80 MG in NA CHLORIDE 0.9% 250 ML IV SCH ×2 (00:10→16:17)
[2023-04-06] MEDS: MORPHINE 2 MG/ML SYR IV PRN ×5 (02:36→23:10)
[2023-04-06] MEDS: HALOPERIDOL LACT 5 MG/ML INJ IV SCH ×3 (03:40→19:33)
[2023-04-06] MEDS: PIPER TAZO 3.375 GM in NA CHLORIDE 0.9% 100 ML IV SCH ×3 (03:40→19:33)
[2023-04-06 05:23] LABS: Bilirubin Total 1.2 mg/dL (0.2-1.0); Magnesium 2.2 mg/dL (1.6-2.4); Phosphorus 1.8 mg/dL (2.5-4.9); Potassium 3.9 mEq/L (3.5-5.1); Protein, Total 5.5 g/dL (6.4-8.2)
[2023-04-06 06:15] LABS: Absolute Lymphocytes (CBC) 1.8 K/uL (0.7-4.9); Lymphocytes % 7.3 % (15.3-44.8); MCV 94.4 fL (80-100); MPV 8.8 fL (7.6-11.3); Platelets 203 thou/uL (152-406); RBC Red Blood Cell Count 2.88 M/uL (4.33-5.43)
[2023-04-06 06:19] LABS: Hematocrit 27.2 % (39.6-49.0)
[2023-04-06] MEDS ORDERED: POTASSIUM PHOS IN 0.9 % NACL 15 MMOL/250 ML BAG IV ONE (07:00)
[2023-04-06] MEDS: INSULIN REGULAR (HUMAN) 100 UNIT/ML SQ SCH ×4 (07:30→21:00)
[2023-04-06] MEDS ORDERED: ENOXAPARIN 40 MG/0.4 ML SQ ONE (08:02)
[2023-04-06] MEDS: DEXMEDETOMIDINE HCL 1,000 MCG in NA CHLORIDE 0.9% 490 ML IV SCH (08:33)
[2023-04-06] MEDS: Mupirocin NASAL 2 APPL/1 GM TUBE NAS SCH ×2 (08:35→20:32)
[2023-04-06] MEDS: ENOXAPARIN 40 MG/0.4 ML SQ SCH (08:35)
[2023-04-06] MEDS ORDERED: NICOTINE 21 MG/PAT TD ONE (09:16)
[2023-04-06] MEDS ORDERED: MORPHINE 2 MG/ML SYR ONE (09:20)
[2023-04-06] MEDS: NICOTINE 21 MG/PAT TD SCH (09:21)
--- NOTE | 2023-04-06 12:11 | P.PN ---
Subjective Date of Service: 04/04/23 Chief Complaint: Abdominal pain Subjective: Improving (Patient states his abdominal pain is significantly improved at this point after surgery. He continues to have some abdominal pain however particularly with movements.) Physical Examination - Vital Signs Temperature: 97.6 F Blood Pressure: 119/67 Pulse: 57 Respirations: 16 Pulse Ox (%): 91 - Physical Exam General: Alert, In no apparent distress, Oriented x3, Cooperative Neck: Supple Respiratory: Clear to auscultation bilaterally, Diminished Cardiovascular: Regular rate/rhythm Gastrointestinal: Other (Soft mild appropriate tenderness to palpation nondistended MIREILLE serosanguineous drainage noted NG tube remains in place bilious type output Aga in place, incision clean and dry.) Musculoskeletal: No clubbing, No swelling, No contractures, No erythema, No tenderness, No warmth Integumentary: No rashes, No breakdown Neurological: Normal speech, Normal strength at 5/5 x4 extr Assessment And Plan - Current Problems (Diagnosis) (1) Perforated gastric ulcer Current Visit: Yes Status: Acute Plan: Patient is an 82-year-old male who is s/p exploratory laparotomy with Justin patch repair of perforated anterior pyloric gastric ulcer on 04/04/2023. - Neuro: Continue current IV pain medication regimen. Monitor for signs of worsening dementia/psychosis in the perioperative period. - Pulm: Continue incentive spirometry and respiratory treatments as needed - CVS: Continue hemodynamic monitoring, no signs of hemodynamic compromise at this time. - GI: Continue serial exams with monitoring of MIREILLE output. Continue NG tube at this time. NG tube to remain at low intermittent wall suction. - FEN: Continue IV fluids, change in accordance with electrolyte abnormalities. Continue electrolyte replacement protocols. Anticipate need for TPN and PICC line. - ID: Continue Zosyn - Prophylaxis: Okay to start prophylactic DVT treatments with Lovenox. Continue PPI acid suppression drip at this time. - Therapy: Physical therapy evaluation - Disposition: Continue to monitor for recovery and need for possible LTAC versus SNF - Endo: Continue insulin sliding scale - Plan to discharge in: Greater than 2 days Time Spent Managing PTS Care (In Minutes): 40
--- NOTE | 2023-04-06 12:15 | P.PN ---
Subjective Date of Service: 04/05/23 Chief Complaint: Abdominal pain Patient had episodes of confusion last night and removed his NG tube. Physical Examination - Vital Signs Temperature: 97.6 F Blood Pressure: 119/67 Pulse: 57 Respirations: 16 Pulse Ox (%): 91 - Physical Exam General: Alert, In no apparent distress, Confused Neck: Supple Respiratory: Clear to auscultation bilaterally, Diminished Cardiovascular: Regular rate/rhythm Gastrointestinal: Other (Soft mild appropriate tenderness to palpation, nondistended, no rebound no guarding no peritoneal signs Aga in place MIREILLE remains serosanguineous.) Musculoskeletal: No clubbing, No swelling, No contractures, No erythema, No tenderness, No warmth Integumentary: No rashes, No breakdown Neurological: Normal speech, Other (Patient has normal speech patterns however remains confused) Urinary: Alanis catheter Assessment And Plan - Current Problems (Diagnosis) (1) Perforated gastric ulcer Current Visit: Yes Status: Acute Plan: Patient is an 82-year-old male who is s/p exploratory laparotomy with Justin patch repair of perforated anterior pyloric gastric ulcer on 04/04/2023. - Neuro: Continue current IV pain medication regimen. Patient has worsening confusion at this point, having episodes of agitation requiring sedation, and restraints - Pulm: Continue incentive spirometry and respiratory treatments as needed - CVS: Continue hemodynamic monitoring, no signs of hemodynamic compromise at this time. - GI: Continue serial exams with monitoring of MIREILLE output. Will discuss replacement of NG tube with radiologist to see if this can be placed under fluoroscopy as he is now high risk after his recent gastric surgery for replacement of his NG tube. If successful placed back on low intermittent wall suction. - FEN: Continue IV fluids, change in accordance with electrolyte abnormalities. Continue electrolyte replacement protocols. Anticipate need for TPN and PICC line. - ID: Continue Zosyn - Prophylaxis: Continue prophylactic DVT treatments with Lovenox. Continue PPI acid suppression drip at this time. - Therapy: Physical therapy evaluation - Disposition: Continue to monitor for recovery and need for possible LTAC versus SNF - Endo: Continue insulin sliding scale - Lines: Replaced NG tube, continue Alanis catheter, PICC line
--- NOTE | 2023-04-06 12:18 | P.PN ---
Subjective Date of Service: 04/06/23 Chief Complaint: Abdominal pain Patient remains confused however no acute events overnight. Physical Examination - Vital Signs Temperature: 97.6 F Blood Pressure: 119/67 Pulse: 57 Respirations: 16 Pulse Ox (%): 91 - Physical Exam General: Alert, In no apparent distress, Cooperative, Confused (Patient is more pleasantly confused smiling during our discussion) Respiratory: Clear to auscultation bilaterally, Normal air movement Cardiovascular: No edema, Normal pulses Gastrointestinal: Other (Soft mild appropriate tenderness to palpation nondistended no rebound or guarding no focal peritonitis MIREILLE output looks more serous, suresh in place no evidence of infection.) Musculoskeletal: No clubbing, No swelling, No contractures, No erythema, No tenderness, No warmth Integumentary: No rashes, No breakdown, No significant lesion, No tenderness/swelling Neurological: Normal speech, Other (Patient has normal speech pattern but r emains low-grade confused somewhat improved from yesterday's exam but remains confused. Patient is happy and in appearance and smiling occasionally laughing to my jokes.) Assessment And Plan - Current Problems (Diagnosis) (1) Perforated gastric ulcer Current Visit: Yes Status: Acute Plan: Patient is an 82-year-old male who is s/p exploratory laparotomy with Justin patch repair of perforated anterior pyloric gastric ulcer on 04/04/2023. - Neuro: Continue current IV pain medication regimen. Patient has worsening confusion at this point, having episodes of agitation requiring sedation, and restraints - Pulm: Continue incentive spirometry and respiratory treatments as needed - CVS: Continue hemodynamic monitoring, no signs of hemodynamic compromise at this time. - GI: Continue serial exams with monitoring of MIREILLE output. Patient had NG tube replaced with Dobbhoff after he removed it successfully by radiologist. Continue on low intermittent wall suction at this point. - FEN: Continue IV fluids, change in accordance with electrolyte abnormalities. Continue electrolyte replacement protocols. Continue TPN and PICC line. Decreased to keep total intake less than 110/h - ID: Continue Zosyn - Prophylaxis: Continue prophylactic DVT treatments with Lovenox. Continue PPI acid suppression drip at this time. - Therapy: Physical therapy evaluation - Disposition: Continue to monitor for recovery and need for possible LTAC versus SNF - Endo: Continue insulin sliding scale - Lines: Replaced NG tube, continue Alanis catheter, PICC line
--- NOTE | 2023-04-06 16:08 | CON ---
Date of Consultation: 04/03/2023 Brief History Of Present Illness: Patient is an 82-year-old man with a history of dementia who prese nted to the ER with acute onset of lower abdominal pain beginning earlier that evening. It became se muna and increased intensity. He is a poor historian. He noted some nausea, denied any vomiting, di arrhea. His pain had become severe and intractable and as such he came to the emergency room with th e above-stated complaints. During my examination, patient had answered questions appropriately, but did have some low-grade confusion to details. However, he was in a significant amount of acute distr ess with severe abdominal pain complaints continuously throughout my encounter. Past Medical History: Dementia, GERD. Past Surgical History: Denies. Allergies: NO KNOWN DRUG ALLERGIES. Home Medications: Include . Review of Systems: 10-point review of systems other than HPI, he denies. Social History: He admits to smoking. Denies alcohol. Denies recreational drug use. Physical Examination: Vital Signs: At the time of my examination, his blood pressure was 127/64, pulse is 108, respiratory rate 14, temperature 97.7, SpO2 of 96% on room air. General: He is awake, alert, and oriented. Psychiatric: He is appropriate. Conversive. Answers questions appropriately. Oriented to person, place, time, event, family, but does have some difficulty remembering details in his past. I am unce rtain if this is due to his pre-existing early stage dementia or severe pain and pain medication admi nistration distracting him to some degree, but he was lucid during my entire examination and did answ er questions appropriately. HEENT: He is normocephalic. His sclerae are anicteric. Mucous membranes are moist. Oropharynx is clear. Neck: Supple without JVD. Chest: Normal expansion and excursion. Cardiovascular: Tachycardic, otherwise regular rhythm. Pulmonary: Clear to auscultation to auscultation bilaterally, but decreased inspiratory effort due t o pain. Abdomen: Rigid, peritonitic, global tenderness, worse in the epigastrium, but this patient has surgi therese abdomen with guarding, rigidity. Extremities: No clubbing, cyanosis, or edema. Skin: Warm and dry. Laboratory Data: Revealed a white blood cell count of 21,000, hemoglobin 13.8, hematocrit of 40.0, p latelet count was 357. His PT 11.3, INR 1.03. Sodium is 131, potassium 4.6, chloride 102, carbon di oxide 23, BUN 21, creatinine was 1.44, glucose 139. Lactic acid 1.5. Calcium 7.8. Magnesium 1.9. Total bilirubin 1.7, direct bilirubin 0.4, indirect 0.5. AST 23, ALT 24, alkaline phosphatase is 85. Lipase is 60. His proBNP was 673. His urinalysis showed turbid urinalysis with 2+ blood, 1+ urobi linogen, 20-50 red blood cells, 5-10 granular casts. He had imaging performed, which included a CT o f the abdomen and pelvis, which was read as moderate to large volume ascites and moderate volume free air suspected secondary to gastric ulcer perforation. No other obvious hollow viscus source. No pe ritoneal findings. Surgical or GI consultation recommended. Distal colonic diverticulosis, distende d gallbladder with multiple gallstones correlate with hepatic enzymes. A right upper quadrant ultras ound if there is sufficient concern for cholecystitis. Additional incidental findings noted. Assessment And Plan: This is an 82-year-old male who comes in with evidence of acute gastric perfora tion/hollow viscus perforation with gross contamination. 1.IV fluid hydration. 2.Antibiotic coverage. 3.I have explained the risks, benefits, and alternatives of exploratory laparotomy, possible bowel r esection, possible repair of gastric and/or duodenal perforation, including, but not limited to bleed ing, infection, damage to surrounding tissues, heart attack, blood clot, stroke, other unforeseen com plications in the perioperative period, need for further operation procedures, long-term need for IV treatment, possible need for additional surgical intervention and/or procedures. Patient displayed u nderstanding of the above stated plan and agreed to proceed as indicated. Patient gave me his daught er's information as the person to contact if he should become incapacitated and unable to make medica l decisions for himself. JAYLIN/WILLIAML Voice ID: [id number] Report ID: [id number]
[2023-04-06] MEDS: AA 5%/D20W/ELECTROLYTES-TPN 2,000 ML IV SCH (16:17)
[2023-04-07] MEDS ORDERED: MORPHINE 2 MG/ML SYR ONE ×2 (01:00→04:02)
[2023-04-07] MEDS: MORPHINE 2 MG/ML SYR IV PRN ×5 (01:15→23:45)
[2023-04-07] MEDS: DEXMEDETOMIDINE HCL 1,000 MCG in NA CHLORIDE 0.9% 490 ML IV SCH ×2 (01:26→20:30)
[2023-04-07] MEDS: PANTOPRAZOLE INJ 80 MG in NA CHLORIDE 0.9% 250 ML IV SCH ×3 (02:06→22:45)
[2023-04-07] MEDS ORDERED: NA CHLORIDE 0.9% 100 ML ONE ×2 (03:05→12:30)
[2023-04-07] MEDS ORDERED: PIPERACIL/TAZO 3.375 GM VIAL IV ONE (03:06)
[2023-04-07] MEDS: HALOPERIDOL LACT 5 MG/ML INJ IV SCH ×3 (03:24→20:25)
[2023-04-07] MEDS: PIPER TAZO 3.375 GM in NA CHLORIDE 0.9% 100 ML IV SCH ×3 (03:24→20:25)
[2023-04-07] MEDS ORDERED: FUROSEMIDE 20 MG/ 2ML VIAL IV ONE (03:56)
[2023-04-07] MEDS ORDERED: FUROSEMIDE 20 MG/ 2ML VIAL ONE (04:04)
[2023-04-07] MEDS ORDERED: KCL 20 MEQ/100 mL IVPB 20 MEQ/100 ML BAG IV ONE (07:00)
--- NOTE | 2023-04-07 07:26 | RAD REPORT ---
EXAM DESCRIPTION: RAD - Chest Single View - 04/07/2023 7:16 am CLINICAL HISTORY: shortness of breathe COMPARISON: Chest Single View dated 04/05/2023; Abdomen 1 View (KUB) dated 04/03/2023; Chest Single Vi ew dated 04/03/2023; Chest Single View dated 08/07/2022; Abdomen Pelvis W Contrast dated 04/03/2023; U pper GI Series Wo KUB dated 04/05/2023 FINDINGS: Lines: Right subclavian approach PICC with tip overlying the proximal SVC. Feeding tube in the stomach. Lungs: Widespread interstitial airspace disease. Pleural: Probable new or enlarging left pleural effusion. Possible small right effusion. Cardiac: Cardiomegaly. Mediastinum: Within normal limits. Bones: No acute fractures. Other: None IMPRESSION: Significant worsening aeration of the lungs likely reflects severe pulmonary edema given the time course of development. Pneumonia and/or pneumonitis difficult to exclude but less likely.
[2023-04-07] MEDS: INSULIN REGULAR (HUMAN) 100 UNIT/ML SQ SCH ×3 (07:30→16:30)
[2023-04-07] MEDS: Mupirocin NASAL 2 APPL/1 GM TUBE NAS SCH ×2 (09:00→20:25)
[2023-04-07] MEDS: ENOXAPARIN 40 MG/0.4 ML SQ SCH (09:00)
[2023-04-07] MEDS ORDERED: NICOTINE 21 MG/PAT TD ONE (09:01)
[2023-04-07] MEDS: NICOTINE 21 MG/PAT TD SCH (09:02)
[2023-04-07 11:26] VITALS: BMI 23.7
[2023-04-07] MEDS ORDERED: METHYLPREDNISOLONE 40 MG INJ IV ONE (12:21)
[2023-04-07] MEDS ORDERED: METHYLPREDNISOLONE 40 MG INJ ONE (12:41)
[2023-04-07] MEDS: AA 5%/D20W/ELECTROLYTES-TPN 2,000 ML IV SCH (17:00)
[2023-04-07] MEDS ORDERED: D50W 25 GM/50 ML SYRINGE IV PRN (20:26)
[2023-04-07] MEDS ORDERED: GLUCAGON 1 MG/VIAL IM PRN (20:26)
[2023-04-07] MEDS ORDERED: D10W 125 ML IV PRN (21:19)
[2023-04-08] MEDS ORDERED: MORPHINE 2 MG/ML SYR ONE ×4 (04:31→23:50)
[2023-04-08] MEDS: HALOPERIDOL LACT 5 MG/ML INJ IV SCH ×3 (04:36→20:34)
[2023-04-08] MEDS: MORPHINE 2 MG/ML SYR IV PRN ×6 (04:36→23:53)
[2023-04-08] MEDS: PIPER TAZO 3.375 GM in NA CHLORIDE 0.9% 100 ML IV SCH ×3 (04:36→20:33)
--- NOTE | 2023-04-08 05:52 | P.PN ---
Date of Service: 04/06/23 Subjective Patient mentation is somewhat improved. Patient is more awake and alert today. Will start weaning him off the Precedex. Objective -Vitals Reviewed -Physical Exam General: Mild distress; dementia and delirious; patient with delirium HEENT: NGT in place Respiratory: Clear to auscultation bilaterally Cardiovascular: No edema, Abnormal pulses (Tachycardia) Gastrointestinal: Slightly distended with appropriate tenderness and dressing intact. Bowel sounds hypoactive; incision is clean dry and intact Musculoskeletal: No swelling, No erythema, No tenderness, Neurological: No focal deficits; generalized confusion Assessment and Plan -Assessment/Plan Perforated gastric ulcer status post Justin patch repair Continue with Protonix drip Anticipating a diet in the next 24 hours. Continue TPN and monitor volume status closely Acute kidney injury Renal function has improved. Will need to follow monitor volume status closely. Tobacco use Nicotine patch History of dementia/acute delirium Currently with treatment for acute delirium. Patient is on Haldol IV as needed as well as a Precedex drip that we are weaning off. Macrocytosis Monitor H&H; supplementation as needed - Advance Directives Does patient have a Living Will: No Does patient have a Durable POA for Healthcare: No
--- NOTE | 2023-04-08 05:59 | P.PN ---
Date of Service: 04/07/23 Subjective Patient is an 82-year-old gentleman who came to the hospital with altered mental status. Patient has a history of Alzheimer's dementia was found to have a perforated gastric ulcer. Patient required emergent Justin patch procedure. After the surgery patient was started on IV fluids and TPN. However, patient became confused and delirious. Patient was given Geodon, but afterwards was needing Precedex drip. Patient has still been confused until yesterday when his mentation started improving. However, patient was little more short of breath and hypoxic and we diurese patient. Patient's chest x-ray shows some pulmonary edema. Echocardiogram with normal ejection fraction. Patient's hypoalbuminemia has improved as well. Continue with gentle diuresing and monitor renal function closely. Also need to continue to monitor volume status and hemodynamics. Will start diet over the next 24 hours. Objective -Vitals Reviewed -Physical Exam General: Mild distress; dementia and delirious; patient with delirium HEENT: NGT in place Respiratory: Clear to auscultation bilaterally Cardiovascular: No edema, Abnormal pulses (Tachycardia) Gastrointestinal: Slightly distended with appropriate tenderness and dressing intact. Bowel sounds hypoactive; incision is clean dry and intact Musculoskeletal: No swelling, No erythema, No tenderness, Neurological: No focal deficits; generalized confusion Assessment and Plan -Assessment/Plan Perforated gastric ulcer status post Justin patch repair Continue with Protonix drip Anticipating a diet in the next 24 hours. Continue TPN and monitor volume status closely Acute pulmonary edema Gentle diuresing and monitor volume status closely. Echocardiogram with normal ejection fraction. Acute kidney injury Renal function has improved. Will need to follow monitor volume status closely. Tobacco use Nicotine patch History of dementia/acute delirium Currently with treatment for acute delirium. Patient is on Haldol IV as needed as well as a Precedex drip that we are weaning off. Macrocytosis Monitor H&H; supplementation as needed - Advance Directives Does patient have a Living Will: No Does patient have a Durable POA for Healthcare: No
[2023-04-08] MEDS: INSULIN REGULAR (HUMAN) 100 UNIT/ML SQ SCH ×4 (06:00→18:00)
[2023-04-08 06:24] LABS: Albumin 1.9 g/dL (3.4-5.0); Bilirubin Total 2.2 mg/dL (0.2-1.0); Phosphorus 3.1 mg/dL (2.5-4.9); Potassium 3.8 mEq/L (3.5-5.1); Protein, Total 5.9 g/dL (6.4-8.2)
[2023-04-08] MEDS ORDERED: KCL 20 MEQ/100 mL IVPB 20 MEQ/100 ML BAG IV SCH (07:00)
[2023-04-08] MEDS ORDERED: NICOTINE 21 MG/PAT TD ONE (07:49)
[2023-04-08] MEDS ORDERED: KCL 20 MEQ/100 mL IVPB 100 ML IV ONE (07:49)
[2023-04-08] MEDS: ENOXAPARIN 40 MG/0.4 ML SQ SCH (07:52)
[2023-04-08] MEDS: Mupirocin NASAL 2 APPL/1 GM TUBE NAS SCH ×2 (07:52→20:34)
[2023-04-08] MEDS: NICOTINE 21 MG/PAT TD SCH (07:52)
--- NOTE | 2023-04-08 09:40 | RAD REPORT ---
EXAM DESCRIPTION: [facility] Single View04/08/2023 9:24 am CLINICAL HISTORY: Shortness breath COMPARISON: April 07, 2023 FINDINGS: No significant change in the appearance of the bilateral pulmonary opacities which may rep resent pulmonary edema. There may be bilateral pleural effusions. Heart is mildly enlarged. PICC line in place
[2023-04-08] MEDS: PANTOPRAZOLE INJ 80 MG in NA CHLORIDE 0.9% 250 ML IV SCH ×2 (10:53→20:34)
[2023-04-08] MEDS: LIDOCAINE 4% PATCH TOP SCH (10:53)
[2023-04-08] MEDS ORDERED: NA CHLORIDE 0.9% 100 ML ONE (11:42)
[2023-04-08] MEDS ORDERED: AMIODARONE HCL 150 MG in D5W 100 ML IV STA (12:14)
[2023-04-08] MEDS ORDERED: AMIODARONE HCL 900 MG in Dextrose 5%-Water 482 ML IV SCH (12:30)
[2023-04-08 12:35] LABS: Absolute Lymphocytes (CBC) 1.4 K/uL (0.7-4.9); Hematocrit 24.7 % (39.6-49.0); Lymphocytes % 4.3 % (15.3-44.8); MPV 8.4 fL (7.6-11.3); Platelets 286 thou/uL (152-406); RBC Red Blood Cell Count 2.23 M/uL (4.33-5.43)
--- NOTE | 2023-04-08 12:35 | P.PN ---
Subjective Date of Service: 04/08/23 Chief Complaint: Abdominal pain Pt is complaining of chest pain that is radiating to his left shoulder. EKG shows A. fib with RVR and ST elevation in V1 leads. Consulted Cardiology. Pt denies abd pain. No other complaints. Review of Systems Unremarkable General: Unremarkable Eyes: Unremarkable ENT: Unremarkable Respiratory: Unremarkable Cardiovascular: Chest Pain, Palpitations Gastrointestinal: Unremarkable Genitourinary: Unremarkable Musculoskeletal: Unremarkable Integumentary: Unremarkable Neurological: Unremarkable Lymphatics: Unremarkable Physical Examination - Vital Signs Temperature: 97.4 F Blood Pressure: 127/46 Pulse: 105 Respirations: 18 Pulse Ox (%): 96 - Physical Exam General: Alert, In no apparent distress, Oriented x3 HEENT: Atraumatic, Normocephalic, Other (difficulty hearing) Neck: Supple, 2+ carotid pulse no bruit, JVD not distended Respiratory: Clear to auscultation bilaterally, Normal air movement Cardiovascular: No edema, Normal S1 S2, Irregular heart rate/rhythm Capillary refill: <2 Seconds Gastrointestinal: Normal bowel sounds, Soft and benign, Non-distended Musculoskeletal: No clubbing, No swelling Integumentary: No rashes, No breakdown Neurological: Normal gait, Normal speech, Normal strength at 5/5 x4 extr Lymphatics: No axilla or inguinal lymphadenopathy - Studies Microbiology Data (last 24 hrs): 04/03/23 00:55 Blood - Blood Aerobic Blood Culture - Final No growth in 5 days. 04/03/23 00:55 Blood - Blood Anaerobic Blood Culture - Final No growth in 5 days. 04/03/23 00:55 Blood - Blood Aerobic Blood Culture - Final No growth in 5 days. 04/03/23 00:55 Blood - Blood Anaerobic Blood Culture - Final No growth in 5 days. Assessment And Plan - Plan Perforated gastric ulcer status post Justin patch repair: Pt denies any abd pain. Abd binder is in place. Will continue protonix and TPN. Pt will start CLD soon. A. fib with RVR: Per EKG. Will continue telemetry. No BB due to hypotension. Hold AC due to gastric perforation. Consulted Cardiology. Chest pain: Due to STEMI. EKG has ST elevation in lead V1. Consulted Cardiology. Cardiology gave amiodarone but pt continued to have ST elevation on EKG. Pt was taken to the hot plate plywood press laborer and cardiology placed 3 stents. Acute pulmonary edema: improved with diuretic. Will continue to monitor volume status. Echo shows normal EF. Acute kidney injury: improved. Cr is 1.02. Will avoid nephrotoxins and monitor renal function. Tobacco use: Pt was advised to quit smonking. Will give nicotine patch History of dementia/acute delirium: Currently with treatment for acute delirium. Improving. Patient is on prn iv Haldol IV as well as a Precedex drip that we are weaning off. DVT ppx: SCD Code: full Dispo: Pending hospital course Discharge Plan: Home - Code Status/Comfort Care Code Status Assessed: Yes Code Status: Full Code
[2023-04-08 12:38] LABS: Platelet Estimate ADEQ; White Blood Cell Scan OK (OK)
[2023-04-08] MEDS ORDERED: DIGOXIN 0.25 MG/ML AMP ONE (12:39)
[2023-04-08] MEDS ORDERED: NOREPINEPHRINE BITARTRATE/D5W 0 MG/0 ML BAG IV ONE (13:18)
[2023-04-08] MEDS ORDERED: FUROSEMIDE 20 MG/ 2ML VIAL ONE (13:18)
[2023-04-08] MEDS ORDERED: Phenylephrine HCl 10 MG/ML 1 ML VIAL ONE (13:18)
[2023-04-08] MEDS ORDERED: NA CHLORIDE 0.9% 1,000 ML ONE ×2 (13:25→16:01)
[2023-04-08] MEDS ORDERED: HEPARIN 10,000 UNIT/10 ML VIAL IV ONE ×2 (13:53→14:45)
[2023-04-08] MEDS ORDERED: ADENOSINE 6 MG/ 2ML VIAL IV ONE (14:07)
[2023-04-08] MEDS ORDERED: NITROPRUSSIDE 50 MG VIAL IV ONE (14:13)
[2023-04-08] MEDS ORDERED: D5W 250 ML IV ONE (14:13)
[2023-04-08] MEDS ORDERED: NA CHLORIDE 0.9% 500 ML ONE (14:15)
[2023-04-08] MEDS ORDERED: HEPA 1000U/500MLS 1,000 UNIT/500 ML BAG IV ONE (14:18)
[2023-04-08] MEDS ORDERED: HEPARIN/D5W 25,000 UNIT/500 ML BAG IV ONE (14:57)
[2023-04-08] MEDS: DEXMEDETOMIDINE HCL 1,000 MCG in NA CHLORIDE 0.9% 490 ML IV SCH (16:15)
[2023-04-08] MEDS ORDERED: HEPA 1000U/500MLS 2,000 UNIT/1,000 ML BAG IV ONE (16:45)
[2023-04-08] MEDS ORDERED: ATROPINE SULF 1 MG/10 ML SYR IV ONE (16:45)
[2023-04-08] MEDS ORDERED: LIDOCAINE 1% 20 ML MDV ONE (16:45)
[2023-04-08] MEDS ORDERED: TICAGRELOR 90 MG TABLET PO ONE ×2 (16:46→21:28)
[2023-04-08] MEDS ORDERED: ASPIRIN 325 MG TAB ONE (16:46)
[2023-04-08] MEDS: AA 5%/D20W/ELECTROLYTES-TPN 2,000 ML, Lipids 20% 250 ML with MULTIVITAMINS INJ 10 ML IV SCH ×3 (17:26)
[2023-04-08] MEDS ORDERED: HEPARIN/D5W 25,000 UNIT/500 ML BAG IV SCH (19:14)
[2023-04-08 20:02] LABS: Hematocrit 20.6 % (39.6-49.0)
[2023-04-08] MEDS: TICAGRELOR 90 MG TABLET PO SCH (21:38)
[2023-04-09 00:44] VITALS: O2SAT 92
[2023-04-09] MEDS: INSULIN REGULAR (HUMAN) 100 UNIT/ML SQ SCH ×3 (01:37→12:00)
[2023-04-09] MEDS ORDERED: INSULIN REGULAR (HUMAN) 100 UNIT/ML ONE (01:39)
[2023-04-09] MEDS: PIPER TAZO 3.375 GM in NA CHLORIDE 0.9% 100 ML IV SCH (04:37)
[2023-04-09] MEDS: HALOPERIDOL LACT 5 MG/ML INJ IV SCH ×2 (04:37→12:00)
[2023-04-09] MEDS: DEXMEDETOMIDINE HCL 1,000 MCG in NA CHLORIDE 0.9% 490 ML IV SCH (04:57)
[2023-04-09] MEDS: PANTOPRAZOLE INJ 80 MG in NA CHLORIDE 0.9% 250 ML IV SCH (07:02)
[2023-04-09 07:36] LABS: Hematocrit 24.4 % (39.6-49.0); MPV 8.7 fL (7.6-11.3); Platelets 315 thou/uL (152-406); RBC Red Blood Cell Count 2.51 M/uL (4.33-5.43)
[2023-04-09 07:54] LABS: Albumin 1.8 g/dL (3.4-5.0); Bilirubin Total 3.4 mg/dL (0.2-1.0); Magnesium 2.2 mg/dL (1.6-2.4); Phosphorus 3.9 mg/dL (2.5-4.9); Potassium 3.9 mEq/L (3.5-5.1); Protein, Total 5.7 g/dL (6.4-8.2)
[2023-04-09] MEDS: LIDOCAINE 4% PATCH TOP SCH (08:42)
[2023-04-09] MEDS: Mupirocin NASAL 2 APPL/1 GM TUBE NAS SCH (08:43)
[2023-04-09] MEDS: NICOTINE 21 MG/PAT TD SCH (08:44)
[2023-04-09] MEDS ORDERED: TICAGRELOR 90 MG TABLET PO ONE (08:49)
[2023-04-09] MEDS: TICAGRELOR 90 MG TABLET PO SCH (08:50)
[2023-04-09] MEDS ORDERED: ASPIRIN 81 MG CHEWABLE TABLET PO SCH (09:00)
[2023-04-09] MEDS ORDERED: Meropenem 1,000 MG in NA CHLORIDE 0.9% 100 ML IV SCH (09:30)
--- NOTE | 2023-04-09 09:33 | ECHO ---
HEIGHT: 5 ft 9 in WEIGHT: 160 lb 12.8 oz DATE OF STUDY: 04/08/[address]: Jose Bowden MD 2-DIMENSIONAL: YES M.MODE: YES DOPPLER: YES COLOR FLOW: YES TDS: PORTABLE: YES DEFINITY: BUBBLE STUDY: DIAGNOSIS: CHEST PAIN, MYOCARDIAL INFARCTION CARDIAC HISTORY: CATHERIZATION: SURGERY: PROSTHETIC VALVE: PACEMAKER: MEASUREMENTS (cm) DIASTOLIC (NORMALS) SYSTOLIC (NORMALS) IVSd (0.6-1.2) LA Diam 3.0 (1.9-4.0) LVEF LVIDd (3.5-5.7) LVIDs 5.4 (2.0-3.5) %FS LVPWd (0.6-1.2) Ao Diam 3.1 (2.0-3.7) 2 DIMENSIONAL ASSESSMENT: RIGHT ATRIUM: NORMAL LEFT ATRIUM: NORMAL RIGHT VENTRICLE: NORMAL LEFT VENTRICLE: DEPRESSED EJECTION FRACTION TRICUSPID VALVE: MILD TRICUSPID REGURGITATION MITRAL VALVE: MILD MITRAL REGURGITATION PULMONIC VALVE: NOT WELL SEEN AORTIC VALVE: NORMAL PERICARDIAL EFFUSION: NONE AORTIC ROOT: NORMAL LEFT VENTRICULAR WALL MOTION: HUGO SEPTAL/ APICAL AKINESIS DOPPLER/COLOR FLOW: SEE BELOW COMMENTS: 1. MODERATELY DEPRESSED LEFT VENTRICULAR EJECTION FRACTION 30-35% 2. HUGO SEPTAL/ APICAL AKINESIS 3. QUESTIONABLE LEFT VENTRICULAR APICAL THROMBUS 4. MILD MITRAL REGURGITATION 5. MILD TRICUSPID REGURGITATION TECHNOLOGIST: LAKSHMI ROMO
[2023-04-09 09:43] VITALS: TEMP 96.5
[2023-04-09] MEDS ORDERED: NA CHLORIDE 0.9% 100 ML ONE (09:59)
[2023-04-09] MEDS ORDERED: Meropenem 1000 MG/VIAL IV ONE (09:59)
[2023-04-09] MEDS ORDERED: NOREPINEPHRINE BITARTRATE/D5W 4 MG/250 ML BAG IV SCH (10:15)
--- NOTE | 2023-04-09 10:32 | P.PN ---
Subjective Date of Service: 04/09/23 Chief Complaint: Abdominal pain Pt is using the BIPAP. He is tachycardic and tachypneic. BP is low will keep MAP > 65 with the aid of pressor. Currently off precedex. Cardiology is following. Pt has poor prognosis. He is not medically stable for transfer. I spoke to the Son-in-law at bedside and he will contact the pt's son to discuss goals of care. Will remove the sheath after we turn off the heparin drip. No other complaints. Review of Systems Unremarkable General: Unremarkable Eyes: Unremarkable ENT: Unremarkable Respiratory: Shortness of Breath Cardiovascular: Palpitations Gastrointestinal: Unremarkable Genitourinary: Unremarkable Musculoskeletal: Unremarkable Integumentary: Unremarkable Neurological: Unremarkable Lymphatics: Unremarkable Physical Examination - Vital Signs Temperature: 96.5 F Blood Pressure: 96/64 Pulse: 75 Respirations: 36 Pulse Ox (%): 98 - Physical Exam General: Alert, In no apparent distress, Oriented x2, Cooperative HEENT: Atraumatic, Normocephalic, PERRLA Neck: Supple, 2+ carotid pulse no bruit Respiratory: Normal air movement, Diminished Cardiovascular: No edema, Normal pulses, Regular rate/rhythm, Normal S1 S2 Capillary refill: <2 Seconds Gastrointestinal: Normal bowel sounds, Soft and benign, Non-distended Musculoskeletal: No clubbing, No swelling Integumentary: No rashes, No breakdown Neurological: Normal speech, Normal strength at 5/5 x4 extr, Normal tone, Sensation intact Lymphatics: No axilla or inguinal lymphadenopathy Assessment And Plan - Plan Perforated gastric ulcer status post Justin patch repair: Pt denies any abd pain. Abd binder is in place. Will continue protonix and Clinimix. Leukocytosis: WBC is 50 <- 31. Likely reactive. Will change iv zosyn to merrem. A. fib with RVR: Per EKG. Will continue telemetry. No BB due to hypotension. Hold AC due to gastric perforation. Consulted Cardiology. Chest pain: Due to STEMI. EKG has ST elevation in lead V1. Consulted Cardiology. Cardiology gave amiodarone but pt continued to have ST elevation on EKG. Pt was taken to the analytical lab technician and cardiology placed 3 stents. Continue Brilinta and heparin drip. Will remove the cath sheath once we turn off heparin drip. Cardiology is following. Pt has poor prognosis. Will discuss goals of care with his family. Hypotension: Multifactorial. Likely due to new onset heart failure. Will continue levophed. Questionable Apical thrombus: Continue heparin drip. Will repeat Echo when stable. Acute resp failure with hypoxia: Continue prn duoneb, BIPAP and abx. Acute Systolic [place] [address]. Echo shows EF 30 - 35% with mild TR and MR with questionable apical thrombus. Will continue heparin drip. Acute pulmonary edema: improved with diuretic. Will continue to monitor volume status. Echo shows normal EF. Acute kidney injury: improved. Cr is 1.44 <- 1.02. Will avoid nephrotoxins and monitor renal function. Tobacco use: Pt was advised to quit smoking. Will give nicotine patch History of dementia/acute delirium: Currently with treatment for acute delirium. Improving. Patient is on prn iv Haldol IV as well as a Precedex drip that we are weaning off. DVT ppx: SCD Code: full Dispo: Pt has poor prognosis. Will discuss goals of care with family.
[2023-04-09] MEDS ORDERED: LORazepam 2 MG/ML VIAL IV PRN (11:14)
[2023-04-09] MEDS: MORPHINE 2 MG/ML SYR IV PRN ×2 (12:35→18:02)
[2023-04-09 18:33] VITALS: BP 54/40
--- NOTE | 2023-04-11 13:37 | EKG ---
Test Date: 2023-04-08 Test Time: 12:46:12 Box Folding Machine Operator: GHADA MEASUREMENT RESULTS: Intervals: Rate: 106 AL: 114 QRSD: 116 QT: 340 QTc: 451 [place]: P: 18 AL: 114 QRS: -50 T: 112 INTERPRETIVE STATEMENTS: Sinus tachycardia with premature atrial complexes Left anterior fascicular block Anterior infarct, possibly acute T wave abnormality, consider lateral ischemia ACUTE HI Abnormal ECG Compared to ECG 04/08/2023 12:02:04 Atrial premature complex(es) now present Left anterior fascicular block now present Atrial fibrillation no longer present Ventricular premature complex(es) no longer present Left-axis deviation no longer present Myocardial infarct finding still present Electronically Signed On 04-11-23 13:25:40 EVENING ANCHOR by Pacheco Chino
--- NOTE | 2023-04-11 13:38 | EKG ---
Test Date: 2023-04-08 Test Time: 12:02:04 Acute Care Nursing Assistant: GHADA MEASUREMENT RESULTS: Intervals: Rate: 154 OR: QRSD: 112 QT: 304 QTc: 486 [place]: P: OR: QRS: -49 T: 109 INTERPRETIVE STATEMENTS: Atrial fibrillation with premature ventricular or aberrantly conducted complexes Left axis deviation Anteroseptal infarct, possibly acute T wave abnormality, consider lateral ischemia or digitalis effect ACUTE ME Abnormal ECG Compared to ECG 04/08/2023 08:25:29 Ventricular premature complex(es) now present Myocardial infarct finding still present T-wave abnormality still present Possible ischemia still present Electronically Signed On 04-11-23 13:25:49 CHANGEOVER OPERATOR by Pacheco Chino
--- NOTE | 2023-04-11 13:40 | EKG ---
Test Date: 2023-04-08 Test Time: 08:25:29 Roof Shingler: PAYTON MEASUREMENT RESULTS: Intervals: Rate: 130 NM: QRSD: 120 QT: 330 QTc: 485 [place]: P: NM: QRS: -60 T: 95 INTERPRETIVE STATEMENTS: Atrial fibrillation with rapid ventricular response Left axis deviation Anteroseptal infarct, possibly acute T wave abnormality, consider lateral ischemia or digitalis effect ACUTE ME Abnormal ECG Compared to ECG 04/03/2023 01:50:08 Left-axis deviation now present Myocardial infarct finding now present T-wave abnormality now present Possible ischemia now present Sinus rhythm no longer present Atrial premature complex(es) no longer present Left ventricular hypertrophy no longer present Electronically Signed On 04-11-23 13:26:19 TATTOO TECHNICIAN by Pacheco Chino
--- NOTE | 2023-04-12 17:04 | P.DS ---
Admission Date: 04/03/23 Discharge Date: 04/12/23 Disposition: HOSPICE-MEDICAL FACILITY Discharge Condition: Reason for Admission: Abdominal pain Brief History of Present Illness: 82-year-old male with a history of dementia was brought to the ED with acute onset of lower abdominal pain that started last night, became very severe and increased in intensity. Patient is a poor historian but states he has some nausea and denied any vomiting or diarrhea. On arrival to the ED initial SBP was 176. Labs notable for WBC 18.2k, H&H 13.5/33.5, platelets 335, MCV 107, Na 130, BUN/Cr 20/1.33, glucose 146 and BNP 673. Chest x-ray was negative for any acute finding however CT abdomen and pelvis revealed moderate to large volume ascites and moderate volume free air suspected secondary to gastric ulcer perforation. There was also diverticulosis and distended gallbladder with multiple small gallstones. Patient has required 2 doses of 4 mg IV morphine, IV fluid bolus and Zofran. He has been evaluated by general surgery and plan for emergency exploratory laparotomy this morning. Hospital Course: Pt is an 82yo female with past medical history of dementia who presented with acute onset of lower abdominal pain that started mariano night before this admission. It progressively worsened and pt came to the Er for evaluation. On admission, pt presented with SBP of 176. Lab studies showed WBC 18.2k, H&H 13.5/33.5, platelets 335, MCV 107, Na 130, BUN/Cr 20/1.33, glucose 146 and BNP 673. Chest x-ray was negative for any acute finding however CT abdomen and pelvis revealed moderate to large volume ascites and moderate volume free air suspected secondary to gastric ulcer perforation. There was also diverticulosis and distended gallbladder with multiple small gallstones. We consulted Gen surgery and Pt was taken to the OR for exploratory laparotomy the next morning. Gen surgery did Justin patch repair. We continued iv abx, protonix and Clinimix. Zosyn was later changed to Merrem due to leukocytosis. Pt was doing well post-op until he srtaed complaining of chest pain that radiated to left shoulder. EKG showed ST elevationin V1 lead. We consulted Cardiology who gave amiodarone but the St elevated persisted in the repeat EKG. The Braid Folder took him to the OR for cardiac cath and placed 3 stents. We continued brilinta after the cardiac cath. Pt did not do well post procedure. Her BP remained hypotensive Echo showed EF 30 - 35% with mild TR and MR with questionable apical thrombus. We continued heparin drip. Pt's medical condition did not improve and his family decided to pursue comfort care. Pt was taken of BIPAp machine and we continue comfort care with prn morphine and ativan. Pt on 04/09/23. Vital Signs/Physical Exam: Temp Pulse Resp BP Pulse Ox 96.5 F L 42 L 25 H 54/40 L 64 L 04/09/23 10:42 04/09/23 18:00 04/09/23 18:00 04/09/23 18:00 04/09/23 18:00 Laboratory Data at Discharge: WBC 50.00 thou/uL (4.3-10.9) H 04/09/23 07:13 Hgb Cancelled 04/09/23 20:00 Hct 24.4 % (39.6-49.0) L 04/09/23 07:13 Plt Count 315 thou/uL (152-406) 04/09/23 07:13 PT 11.3 SECONDS (9.5-12.5) 04/03/23 01:37 INR 1.03 04/03/23 01:37 APTT Cancelled 04/09/23 20:00 Sodium 140 mEq/L (136-145) 04/09/23 07:13 Potassium 3.9 mEq/L (3.5-5.1) 04/09/23 07:13 BUN 45 mg/dL (7-18) H 04/09/23 07:13 Creatinine 1.44 mg/dL (0.70-1.30) H 04/09/23 07:13 Glucose 204 mg/dL (74-106) H 04/09/23 07:13 Phosphorus 3.9 mg/dL (2.5-4.9) 04/09/23 07:13 Magnesium 2.2 mg/dL (1.6-2.4) 04/09/23 07:13 Total Bilirubin 3.4 mg/dL (0.2-1.0) H 04/09/23 07:13 AST 103 U/L (15-37) H 04/09/23 07:13 ALT 37 U/L (16-61) 04/09/23 07:13 Alkaline Phosphatase 81 U/L (45-117) 04/09/23 07:13 Lipase 60 U/L (13-75) 04/03/23 01:37 Home Medications: Memantine HCl 50 mg PO DAILY 02/27/23 Rosuvastatin [Crestor] 5 mg PO BEDTIME 04/03/23 Followup: Tristan Styles DO [Primary Care Provider] - Armani Patterson MD [ACTIVE - CAN ADMIT] -
== END 2023-04-09 21:10 | disposition expired | DRG 326 ==
LOC: ER 00:20 → ERHOLD 04:54 → 3RD-ICU 07:32
PROVIDERS: ADMIT Internal Medicine; ATTEND Hospitalist
PROC: 5A09357 Assistance with Respiratory Ventilation, Less than 24 Consecutive Hours, Continuous Positive Airway Pressure (ICD-10-PCS; 2023-04-03)
PROC: 0T9B70Z Drainage of Bladder with Drainage Device, Via Natural or Artificial Opening (ICD-10-PCS; 2023-04-03)
PROC: 0DH67UZ Insertion of Feeding Device into Stomach, Via Natural or Artificial Opening (ICD-10-PCS; 2023-04-03)
PROC: 0DU607Z Supplement Stomach with Autologous Tissue Substitute, Open Approach (ICD-10-PCS; principal; 2023-04-03 05:00)
PROC: 02HV33Z Insertion of Infusion Device into Superior Vena Cava, Percutaneous Approach (ICD-10-PCS; 2023-04-05)
PROC: 3E0436Z Introduction of Nutritional Substance into Central Vein, Percutaneous Approach (ICD-10-PCS; 2023-04-05)
DX: K25.1 Acute gastric ulcer with perforation (principal); I21.3 ST elevation (STEMI) myocardial infarction of unspecified site; J96.01 Acute respiratory failure with hypoxia; I50.21 Acute systolic (congestive) heart failure; F05 Delirium due to known physiological condition; N17.9 Acute kidney failure, unspecified; R18.8 Other ascites; I48.91 Unspecified atrial fibrillation; E88.09 Other disorders of plasma-protein metabolism, not elsewhere classified; G30.9 Alzheimer's disease, unspecified; F02.A0 Dementia in other diseases classified elsewhere, mild, without behavioral disturbance, psychotic disturbance, mood disturbance, and anxiety; F17.210 Nicotine dependence, cigarettes, uncomplicated; Z78.1 Physical restraint status
CPT/HCPCS: 36415; 36569; 71045; 74018; 74177; 74240; 76937; 80048; 80053; 80076; 81001; 82607; 82947; 83605; 83690; 83735; 83880; 84100; 84484; 85014; 85018; 85025; 85347; 85610; 85730; 86850; 86900; 86901; 87040; 93005; 93306; 93454; 94010; 94660; 94760; 96361; 96365; 96375; 97116; 97161; 97530; 99285; A4216; C1725; C1893; C9113; C9600; J0153; J0282; J0461; J1160; J1170; J1630; J1650; J1815; J1940; J2001; J2175; J2185; J2270; J2371; J2405; J2543; J2704; J2765; J2920; J3010; J3475; J3480; J3486; J7030; J7040; J7042; J7050; J7060; J7120; Q9967